=== PATIENT | female | born 1980 | race Two or more races ===

== ENCOUNTER 2018-02-24 02:35 | Emergency (ER) | payer MEDICAID ==
[~2018-02-24] VITALS: Ht 170.2 cm; Wt 49.0 kg
[2018-02-24 02:43] VITALS: BP 109/72
== END 2018-02-24 07:14 | disposition left against medical advice (07) ==
LOC: ER 02:37
DX: M79.602 Pain in left arm (principal); S70.212A Abrasion, left hip, initial encounter; Z53.21 Procedure and treatment not carried out due to patient leaving prior to being seen by health care provider; V86.55XA Driver of 3- or 4- wheeled all-terrain vehicle (ATV) injured in nontraffic accident, initial encounter; Y93.89 Activity, other specified; Y99.8 Other external cause status; Y92.89 Other specified places as the place of occurrence of the external cause
CPT/HCPCS: 73060

== ENCOUNTER 2025-06-27 00:52 | Inpatient (IN) | payer MEDICARE, MEDICAID ==
[~2025-06-27] VITALS: Ht 170.2 cm; Wt 42.6 kg
--- NOTE | 2025-06-27 02:25 | ED.PDOC ---
History of Present Illness HPI Comments 44-year-old female who came to ER for tube replacement. Patient has a history of cervical cancer stage IV, status post bilateral nephrostomy tube insertion over a year ago at a hospital at [place]. For the past few months, the stitches came of the nephrostomy tubes, and both tubes have been left dangling, held only by bandages. Nephrostomy tubes are still able to drain fluid. 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 Hx Family History Family History: Reviewed,noncontributory to illness Social History Smoker: Non-Smoker Alcohol: Denies ETOH Use Drugs: Denies Drug Use Lives In: Home Constitutional: denies: chills, diaphoresis, fatigue, fever, malaise, sweats, weakness, others EENTM: denies: blurred vision, double vision, ear bleeding, ear discharge, ear drainage, ear pain, ear ringing, eye pain, eye redness, hearing loss, mouth pain, mouth swelling, nasal discharge, nose bleeding, nose congestion, nose pain, photophobia, tearing, throat pain, throat swelling, voice changes, others Respiratory: denies: cough, hemoptysis, orthopnea, SOB at rest, shortness of breath, SOB with excertion, stridor, wheezing, others Cardiovascular: denies: chest pain, dizzy spells, diaphoresis, Dyspnea on exertion, edema, irregular heart beat, left arm pain, lightheadedness, palpitations, PND, syncope, others Gastrointestinal: denies: abdomen distended, abdominal pain, blood streaked bowels, constipated, diarrhea, dysphagia, difficulty swallowing, hematemesis, melena, nausea, poor appetite, poor fluid intake, rectal bleeding, rectal pain, vomiting, others Genitourinary: reports: others (Dislodged bilateral nephrostomy tubes); denies: abnormal vagina bleeding, burning, dyspareunia, dysuria, flank pain, frequency, hematuria, incontinence, pain, , vagina discharge, urgency Neurological: denies: dizziness, fainting, headache, left sided numbness, left sided weakness, numbness, paresthesia, pre-existing deficit, right sided numbness, right sided weakness, seizure, speech problems, tingling, tremors, weakness, others Musculoskeletal: denies: back pain, gout, joint pain, joint swelling, muscle pain, muscle stiffness, neck pain, others Integumetry: denies: bruises, change in color, change in hair/nails, dryness, laceration, lesions, lumps, rash, wounds, others Allergic/Immunocompromised: denies: Difficulty Healing, Frequent Infections, Hives, Itching, others Hematologic/Lymphatic: denies: anemia, blood clots, easy bleeding, easy bruising, swollen glands, others Endocrine: denies: excessive hunger, excessive sweating, excessive thirst, excessive urination, flushing, intolerance to cold, intolerance to heat, unexplained weight gain, unexplained weight loss, others Psychiatric: denies: anxiety, bipolar disorder, depression, hopeless, panic disorder, schizophrenia, sleepless, suicidal, others Physical Exam General Appearance: No Apparent Distress, Normal HEENT: Normal ENT Inspection, Pharynx Normal, TMs Normal Neck: Full Range of Motion, Non-Tender, Normal, Normal Inspection Respiratory: Chest Non-Tender, Lungs Clear, No Accessory Muscle Use, No Respiratory Distress, Normal Breath Sounds Cardiovascular: No Edema, No JVD, No Murmur, No Gallop, Normal Peripheral Pulses, Regular Rate/Rhythm Breast Exam: Deferred Gastrointestinal: No Organomegaly, Non Tender, No Pulsatile Mass, Normal Bowel Sounds, Soft, Other (Bilateral nephrostomy tubes) Genitalia: Deferred Pelvic: Deferred Rectal: Deferred Extremities: No calf tenderness, Normal capillary refill, Normal inspection, Normal range of motion, Non-tender, No pedal edema Musculoskeletal : Apperance: Normal Neurologic: Alert, embedded firmware developer II-XII nml as Tested, No Motor Deficits, Normal Affect, Normal Mood, No Sensory Deficits Cerebellar Function: Normal Reflexes: Normal Skin: Dry, Normal Color, Warm Lymphatic: No Adenopathy Was a procedure done? Was a procedure done?: No Differential Dx Considerations may include: Dislodged nephrostomy tube, urinary tract infection, sepsis X-Ray, Labs, Meds, VS Vital Signs Date Time Temp Pulse Resp B/P (MAP) Pulse Ox O2 Delivery O2 Flow Rate FiO2 06/27/25 00:59 99.2 100 18 106/70 100 99.2 Lab Test 06/27/25 02:28 Range/Units White Blood Count 9.1 4.4-10.8 10^3/uL Red Blood Count 2.83 L 4.0-5.20 10^6/uL Hemoglobin 9.0 L 12.2-16.2 g/dL Hematocrit 27.8 L 36.0-46.0 % Mean Corpuscular Volume 98.3 80.0-100.0 fL Mean Corpuscular Hemoglobin 32.0 28.0-32.0 pg Mean Corpuscular Hemoglobin Concent 32.5 32.0-36.0 g/dL Red Cell Distribution Width 15.1 H 11.8-14.3 % Platelet Count 413 140-450 10^3/uL Mean Platelet Volume 7.0 6.9-10.8 fL Neutrophils (%) (Auto) 83.4 H 37.0-80.0 % Lymphocytes (%) (Auto) 6.5 L 10.0-50.0 % Monocytes (%) (Auto) 7.5 0.0-12.0 % Eosinophils (%) (Auto) 2.2 0.0-7.0 % Basophils (%) (Auto) 0.4 0.0-2.0 % Neutrophils # (Auto) 7.6 1.6-8.6 10 ^3/uL Lymphocytes # (Auto) 0.6 0.4-5.4 10 ^3/uL Monocytes # (Auto) 0.7 0-1.3 10 ^3/uL Eosinophils # (Auto) 0.2 0-0.8 10 ^3/uL Basophils # (Auto) 0 0-0.2 10 ^3/uL Nucleated Red Blood Cells 0.0 % Sodium Level 134 L 136-145 mmol/L Potassium Level 3.5 3.5-5.1 mmol/L Chloride Level 102 98-107 mmol/L Carbon Dioxide Level 23 20-31 mmol/L Anion Gap 9 5-15 Blood Urea Nitrogen 11 9-23 mg/dL Creatinine 1.42 H 0.550-1.02 mg/dL Glomerular Filtration Rate Calc 47 >90 mL/min BUN/Creatinine Ratio 7.7 L 10.0-20.0 Serum Glucose 141 H 74-106 mg/dL Lactic Acid Level 1.6 0.4-2.0 mmol/L Calcium Level 8.9 8.7-10.4 mg/dL Total Bilirubin 0.3 0.2-1.0 mg/dL Aspartate Amino Transferase (AST) 29 13-40 U/L Alanine Aminotransferase (ALT) 17 7-40 U/L Alkaline Phosphatase 137 H 46-116 U/L Total Protein 7.5 5.7-8.2 g/dL Albumin 4.1 3.2-4.8 g/dL Current Medications Medications (Trade) Dose Ordered Sig/Santiago Route Start Time Stop Time Status Last Admin Sodium Chloride 1,000 ml @ 1,000 mls/hr Q1H ONCE IVB 06/27/25 02:15 06/27/25 03:14 DC 06/27/25 03:07 Exam: CT CT AB PEL WITH IV CON ONLY History: abd pain stage 4 cerv cancer Comparison Study: 02/17/2025 (report only available) Technique: Multidetector spiral CT of the abdomen was performed from lung bases to pubic symphysis. Imaging was performed without IV contrast. Axial, coronal and sagittal multiplanar reformats were obtained from the axial data set by the technologist. Radiation Dose : 1. Abdomen/Pelvis: CTDIvol 5.07 mGy, DLP 5.07 mGy*cm. Findings: Evaluation of solid organs is limited due to lack of intravenous contrast use. Lower Chest: No acute findings. Liver: Upper normal size. No focal lesion. Gallbladder and Biliary Tree: Unremarkable Pancreas: Unremarkable. Spleen: Unremarkable. Adrenal Glands: Unremarkable. Kidneys/Ureters: Bilateral percutaneous nephrostomy tubes appear appropriately positioned. Mild left hydroureteronephrosis with urothelial enhancement. Right perinephric stranding. Symmetric nephrograms. No urinary stone. Bladder: Decompressed, not well assessed. Pelvic Organs: Elongated hyperdense appearance of the cervix. No appreciable mass. Bilateral tubal occlusion clips. Bowel: Mild wall thickening of the cecum, ascending colon, and rectum. No other areas of evident inflammation. No obstruction. Small to moderate stool burden. Vasculature: Unremarkable. Lymphadenopathy: No obvious adenopathy. Peritoneum: No ascites, free air, or fluid collection. Soft tissue stranding surrounding the rectum. Abdominal Wall: Cachexia. Musculoskeletal: No acute findings. IMPRESSION: 1. Bilateral percutaneous nephrostomy tubes appear appropriately positioned. Suspected left upper urinary tract infection. 2. Unusual elongated hypodense appearance of the cervix as reported on the comparison exam. No discrete masses appreciated by CT, or specific findings of metastatic disease. 3. Wall thickening of the cecum, ascending colon, and rectum. Stranding around the rectum may be inflammatory. Correlate for symptoms of colitis/proctitis. Radiation optimization: All CT scans at this facility use at least one of these dose optimization techniques: automated exposure control mA and/or kV adjustment per patient size (includes targeted exams where dose is matched to clinical indication) or iterative reconstruction. Time of 1ST Reevaluation: 02:20 Reevaluation 1ST: Unchanged Patient Education/Counseling: Diagnosis, Treatment Family Education/Counseling: Diagnosis, Treatment SEPSIS Sepsis Screen Date sepsis recognized/suspect: Jun 27, 2025 Time Sepsis recognized/suspect: 0059 Recent Procedure: No On Antibiotic Therapy: No Respiratory Rate >20: No Heart Rate >90: No Temp<36 C (96.8 F) or >38.3 C: No SBP <90 or MAP <65 mmHG: No New Acute Mental Status Change: No Is the patient on CPAP, BIPAP,: No Physician Orders Urinalysis (06/27/25 02:02) Ct Ab Pel With Iv Con Only (06/27/25 02:02) Blood Culture (06/27/25 02:02) Ceftriaxone Ivpb Rocephin (06/27/25 04:45) Vital Signs Date Time Temp Pulse Resp B/P (MAP) Pulse Ox O2 Delivery O2 Flow Rate FiO2 06/27/25 00:59 99.2 100 18 106/70 100 99.2 Laboratory Tests Test 06/27/25 02:28 Lactic Acid Level 1.6 mmol/L (0.4-2.0) White Blood Count 9.1 10^3/uL (4.4-10.8) Medications Medications Dose Ordered Sig/Santiago Route Start Time Stop Time Status Last Admin Dose Admin Sodium Chloride 1,000 ml @ 1,000 mls/hr Q1H ONCE IVB 06/27/25 02:15 06/27/25 03:14 DC 06/27/25 03:07 Departure 1 Departure Time of Disposition: 04:37 Impression: Primary Impression: Acute renal injury Additional Impressions: Pyelonephritis 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 Electronically submitted by Jesús Valle [email or web address]). I personally scribed for GREG CASTILLO MD ([email or web address]) on 06/27/25 at 04:24. Electronically submitted by Jesús Valle ([email or web address]). GREG CASTILLO MD Jun 27, 2025 02:25
[2025-06-27 02:47] LABS: Hematocrit 27.8 % (36.0-46.0); Hemoglobin 9.0 g/dL (12.2-16.2); Mean Corpuscular Hemoglobin 32.0 pg (28.0-32.0); Mean Corpuscular Volume 98.3 fL (80.0-100.0); Nucleated Red Blood Cells % 0.0 %
[2025-06-27 02:58] LABS: Alanine Aminotransferase 17 U/L (7-40); Albumin 4.1 g/dL (3.2-4.8); Anion Gap 9 (5-15); BUN/Creatinine Ratio 7.7 (10.0-20.0); Blood Urea Nitrogen 11 mg/dL (9-23); Calcium 8.9 mg/dL (8.7-10.4); Carbon Dioxide 23 mmol/L (20-31); Chloride 102 mmol/L (98-107); Potassium 3.5 mmol/L (3.5-5.1); Total Protein 7.5 g/dL (5.7-8.2)
[2025-06-27 03:00] LABS: Alkaline Phosphatase 137 U/L (46-116); Bilirubin, Total 0.3 mg/dL (0.2-1.0); Glucose 141 mg/dL (74-106); Sodium 134 mmol/L (136-145)
[2025-06-27] MEDS: SODIUM CHLORIDE 0.9% 1,000 ML IVB ONE (03:07)
[2025-06-27] MEDS: IOHEXOL 300 MG/ML 100ML BOTTLE IJ ONE (03:56)
--- NOTE | 2025-06-27 04:19 | DVH ---
Exam: CT CT AB PEL WITH IV CON ONLY History: abd pain stage 4 cerv cancer Comparison Study: 02/17/2025 (report only available) Technique: Multidetector spiral CT of the abdomen was performed from lung bases to pubic symphysis. I maging was performed without IV contrast. Axial, coronal and sagittal multiplanar reformats were obta ined from the axial data set by the technologist. Radiation Dose : 1. Abdomen/Pelvis: CTDIvol 5.07 mGy, DLP 5.07 mGy*cm. Findings: Evaluation of solid organs is limited due to lack of intravenous contrast use. Lower Chest: No acute findings. Liver: Upper normal size. No focal lesion. Gallbladder and Biliary Tree: Unremarkable Pancreas: Unremarkable. Spleen: Unremarkable. Adrenal Glands: Unremarkable. Kidneys/Ureters: Bilateral percutaneous nephrostomy tubes appear appropriately positioned. Mild left hydroureteronephrosis with urothelial enhancement. Right perinephric stranding. Symmetric nephrogram s. No urinary stone. Bladder: Decompressed, not well assessed. Pelvic Organs: Elongated hyperdense appearance of the cervix. No appreciable mass. Bilateral tubal occlusion clips. Bowel: Mild wall thickening of the cecum, ascending colon, and rectum. No other areas of evident infl ammation. No obstruction. Small to moderate stool burden. Vasculature: Unremarkable. Lymphadenopathy: No obvious adenopathy. Peritoneum: No ascites, free air, or fluid collection. Soft tissue stranding surrounding the rectum. Abdominal Wall: Cachexia. Musculoskeletal: No acute findings. IMPRESSION: 1. Bilateral percutaneous nephrostomy tubes appear appropriately positioned. Suspected left upper uri nary tract infection. 2. Unusual elongated hypodense appearance of the cervix as reported on the comparison exam. No discre te masses appreciated by CT, or specific findings of metastatic disease. 3. Wall thickening of the cecum, ascending colon, and rectum. Stranding around the rectum may be inf lammatory. Correlate for symptoms of colitis/proctitis. Radiation optimization: All CT scans at this facility use at least one of these dose optimization stephanie hniques: automated exposure control mA and/or kV adjustment per patient size (includes targeted exam s where dose is matched to clinical indication) or iterative reconstruction.
[2025-06-27] MEDS ORDERED: DOCUSATE SOD 100 MG CAP PO PRN (05:00)
[2025-06-27] MEDS ORDERED: ACETAMINOPHEN 325 MG TAB PO PRN (05:00)
[2025-06-27] MEDS ORDERED: MORPHINE SULFATE INJ 2 MG/ml SYRG IV PRN ×2 (05:00→05:30)
[2025-06-27] MEDS ORDERED: NITROGLYCERIN 0.4 MG SL TAB SL PRN (05:00)
--- NOTE | 2025-06-27 05:32 | DVHHPRES ---
History of Present Illness Resident Creating Document: BEBO ABRAMS RESIDENT History of Present Illness Jeff Mcmullen is a 44-year-old female who came to ER for severe pain in bilateral flank which is 10/10 in intensity, more on the left side , and for tube replacement. Patient has a history of cervical cancer stage IV, status post bilateral nephrostomy tube insertion over a year ago at a hospital at [place]. For the past few months, the stitches came of the nephrostomy tubes, and both tubes have been left dangling, held only by bandages. Nephrostomy tubes are still able to drain fluid, and nephrostomy bags are filled with non bloody urine. patient also complains of bloody stool since 1 month. She also states feeling weak, dizzy, headaches, fevers and chills. Past surgical history: Surgery for cervical cancer, nephrostomy tube placement Family history: Reviewed noncontributory Personal history: Patient denies smoking, drinking, drugs use Lives with: Family Review of Systems Constitutional: Yes: Fever, Chills, Weakness; No: Sweats, Malaise, Other Eyes: No: Pain, Vision change, Conjunctivae inflammation, Eyelid inflammation, Other, Redness ENT: No: Ear pain, Ear discharge, Nose pain, Nose discharge, Nose congestion, Mouth pain, Mouth swelling, Throat pain, Throat swelling, Other Respiratory: No: Cough, Dry, Shortness of breath, SOB with excertion, Wheezing, Hemoptysis, Pleuritic Pain, Sputum, Wheezing, Other Cardiovascular: No: Chest Pain, Palpitations, Orthopnea, Paroxysmal Noc. Dyspnea, Edema, Lt Headedness, Other Gastrointestinal: Nausea, Hematochezia, Other; No: Vomiting, Abdominal Pain, Diarrhea, Constipation, Melena Genitourinary: Other (Bilateral flank pain) Musculoskeletal: No: other, neck pain, shoulder pain, arm pain, back pain, hand pain, leg pain, foot pain Skin: No: Rash, Lesions, Jaundice, Bruising, Other Neurological: No: Weakness, Numbness, Incoordination, Change in speech, Confusion, Seizures, Other Allergies: Coded Allergies: Morphine (Verified Allergy, Unknown, 06/27/25) Penicillins (Verified Allergy, Unknown, 02/24/18) Medications Current Medications Medications Dose Ordered Sig/Santiago Route Start Time Stop Time Status Last Admin Dose Admin Acetaminophen 325 mg Q4HP PRN PO 06/27/25 05:00 Acetaminophen/ Hydrocodone Bitart 1 tab Q4HP PRN PO 06/27/25 05:00 Ondansetron HCl 4 mg Q4HP PRN IV 06/27/25 05:00 Docusate Sodium 100 mg BIDPRN PRN PO 06/27/25 05:00 Nitroglycerin 0.4 mg Q5MINP PRN SL 06/27/25 05:00 Morphine Sulfate 2 mg Q30M PRN IV 06/27/25 05:00 Exam Vital Signs Vital Signs Date Time Temp Pulse Resp B/P (MAP) Pulse Ox O2 Delivery O2 Flow Rate FiO2 06/27/25 00:59 99.2 100 18 106/70 100 99.2 Exam General: Patient alert and oriented in person, place and time. Patient following commands. Malnourished, weak, in severe distress HEENT: Normocephalic, atraumatic, moist mucous membranes Respiratory/pulmonary: Clear lungs bilaterally, vesicular murmurs present in almost all lung harper, no associated crackles or wheezes. Cardiovascular: Normal heart sounds S1 and S2 with no associated murmurs Abdomen: Bilateral nephrostomy tube placement with clear urine in bags, Extremities: There is no peripheral edema present at the lower extremities. Peripheral Pulses: 3+ Radial (R). 3+ Radial (L). 3+ Dorsalis pedis (R). 3+ Dorsalis pedis(L) Skin: No rashes or pruritus, there is no sacral edema present at this time. Neurological: Intact cranial nerves with no focal neurologic deficits Psych/mental status: Normal mood, mental status Labs/Xrays Labs Test 06/27/25 02:28 Range/Units White Blood Count 9.1 4.4-10.8 10^3/uL Red Blood Count 2.83 L 4.0-5.20 10^6/uL Hemoglobin 9.0 L 12.2-16.2 g/dL Hematocrit 27.8 L 36.0-46.0 % Mean Corpuscular Volume 98.3 80.0-100.0 fL Mean Corpuscular Hemoglobin 32.0 28.0-32.0 pg Mean Corpuscular Hemoglobin Concent 32.5 32.0-36.0 g/dL Red Cell Distribution Width 15.1 H 11.8-14.3 % Platelet Count 413 140-450 10^3/uL Mean Platelet Volume 7.0 6.9-10.8 fL Neutrophils (%) (Auto) 83.4 H 37.0-80.0 % Lymphocytes (%) (Auto) 6.5 L 10.0-50.0 % Monocytes (%) (Auto) 7.5 0.0-12.0 % Eosinophils (%) (Auto) 2.2 0.0-7.0 % Basophils (%) (Auto) 0.4 0.0-2.0 % Neutrophils # (Auto) 7.6 1.6-8.6 10 ^3/uL Lymphocytes # (Auto) 0.6 0.4-5.4 10 ^3/uL Monocytes # (Auto) 0.7 0-1.3 10 ^3/uL Eosinophils # (Auto) 0.2 0-0.8 10 ^3/uL Basophils # (Auto) 0 0-0.2 10 ^3/uL Nucleated Red Blood Cells 0.0 % Sodium Level 134 L 136-145 mmol/L Potassium Level 3.5 3.5-5.1 mmol/L Chloride Level 102 98-107 mmol/L Carbon Dioxide Level 23 20-31 mmol/L Anion Gap 9 5-15 Blood Urea Nitrogen 11 9-23 mg/dL Creatinine 1.42 H 0.550-1.02 mg/dL Glomerular Filtration Rate Calc 47 >90 mL/min BUN/Creatinine Ratio 7.7 L 10.0-20.0 Serum Glucose 141 H 74-106 mg/dL Lactic Acid Level 1.6 0.4-2.0 mmol/L Calcium Level 8.9 8.7-10.4 mg/dL Total Bilirubin 0.3 0.2-1.0 mg/dL Aspartate Amino Transferase (AST) 29 13-40 U/L Alanine Aminotransferase (ALT) 17 7-40 U/L Alkaline Phosphatase 137 H 46-116 U/L Total Protein 7.5 5.7-8.2 g/dL Albumin 4.1 3.2-4.8 g/dL SEPSIS Sepsis Screen Date sepsis recognized/suspect: Jun 27, 2025 Time Sepsis recognized/suspect: 58 Recent Procedure: No On Antibiotic Therapy: No Respiratory Rate >20: No Heart Rate >90: No Temp<36 C (96.8 F) or >38.3 C: No SBP <90 or MAP <65 mmHG: No New Acute Mental Status Change: No Is the patient on CPAP, BIPAP,: No Physician Orders Urinalysis (06/27/25 02:02) Ct Ab Pel With Iv Con Only (06/27/25 02:02) Blood Culture (06/27/25 02:02) Ceftriaxone 1gm/50ml D5w (Rocephin) (06/27/25 04:45) Admit (06/27/25 04:47) Allergies (06/27/25 04:47) Code Status (06/27/25 04:47) Acetaminophen Tablet (Tylenol Tablet) (06/27/25 05:00) Hydrocodone-Acet 5/325mg Tab ([place] 5/32 (06/27/25 05:00) Ondansetron Hcl (Zofran) (06/27/25 05:00) Docusate Sodium Capsule (Colace Capsule) (06/27/25 05:00) Npo (Nothing By Mouth) Diet (06/27/25 Breakfast) Condition: Serious (06/27/25 04:47) Bedrest With Bathroom Privileg (06/27/25 04:47) Nitroglycerin Sublingual (Ntrostat Subli (06/27/25 05:00) Morphine Sulfate Injection (06/27/25 05:00) Oxygen By Nasal Cannula (06/27/25 04:47) Stat Ekg For Chest Pain (06/27/25 04:47) Notify Md Of Changes From Base (06/27/25 04:47) Radiation Monitor For 24 Hours (06/27/25 04:47) Emergency Dysrhythmia Protocol (06/27/25 04:47) Rhythm Strips Once Every Shift (06/27/25 04:47) Vital Signs Date Time Temp Pulse Resp B/P (MAP) Pulse Ox O2 Delivery O2 Flow Rate FiO2 06/27/25 00:59 99.2 100 18 106/70 100 99.2 Laboratory Tests Test 06/27/25 02:28 Lactic Acid Level 1.6 mmol/L (0.4-2.0) White Blood Count 9.1 10^3/uL (4.4-10.8) Medications Medications Dose Ordered Sig/Santiago Route Start Time Stop Time Status Last Admin Dose Admin Sodium Chloride 1,000 ml @ 1,000 mls/hr Q1H ONCE IVB 06/27/25 02:15 06/27/25 03:14 DC 06/27/25 03:07 1,000 MLS/HR Assessment/Plan Assessment/Plan # complication of Nephrostomy tube # stage IV cervical cancer with possible metastasis # possible acute complicated pyelonephritis # suspected left upper UTI - abdominal CT showed: Bilateral percutaneous nephrostomy tubes appear appropriately positioned. Suspected left upper urinary tract infection. Unusual elongated hypodense appearance of the cervix as reported on the comparison exam - Blood, and Urine culture ordered - IV meropenem 1 g - urology consult placed -morphine 2 mg IV # Questionable colitis/proctitis. - CT abdomen showed: Wall thickening of the cecum, ascending colon, and rectum. Stranding around the rectum may be inflammatory. 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 Peguero, patient and nurse Plan discussed with: Patient My Orders Orders - BEBO ABRAMS RESIDENT Procedure Category Date Status Time Admit ADMIT 06/27/25 Transmitted 04:47 Allergies MISTY 06/27/25 In Process 04:47 Code Status CODE 06/27/25 Transmitted 04:47 Acetaminophen Tablet PHA 06/27/25 In Process (Tylenol Tablet) 05:00 Hydrocodone-Acet PHA 06/27/25 In Process 5/325mg Tab ([place] 05:00 Ondansetron Hcl PHA 06/27/25 In Process (Zofran) 05:00 Docusate Sodium PHA 06/27/25 In Process Capsule (Colace 05:00 Npo (Nothing By DIET 06/27/25 Transmitted Mouth) Diet Breakfast Condition: Serious MISTY 06/27/25 In Process 04:47 Bedrest With Bathroom MISTY 06/27/25 In Process Privileg 04:47 Nitroglycerin PHA 06/27/25 In Process Sublingual (Ntrostat 05:00 Morphine Sulfate PHA 06/27/25 In Process Injection 05:00 Oxygen By Nasal RT 06/27/25 Transmitted Cannula 04:47 Stat Ekg For Chest [facility] 06/27/25 In Process Pain 04:47 Notify Md Of Changes [facility] 06/27/25 In Process From Base 04:47 Radiation Monitor For [facility] 06/27/25 In Process 24 Hours 04:47 Emergency Dysrhythmia [facility] 06/27/25 In Process Protocol 04:47 Rhythm Strips Once [facility] 06/27/25 In Process Every Shift 04:47 Date of Service: Jun 27, 2025 Billing Provider: ABIDA PEGUERO MD Common Visit Codes: 88796-EFGHKYP INP/OBS CARE (HIGH) Secondary Visit Codes: [id number] CARE PLAN 30 MINUTES BEBO ABRAMS RESIDENT Jun 27, 2025 05:32
[2025-06-27] MEDS: HYDROcodone-ACET 5/325MG TAB PO PRN (06:13)
[2025-06-27] MEDS: MEROPENEM 1GM IVPB 50 ML IV ONE (07:15)
[2025-06-27 08:20] LABS: INR 1.04 (0.9-1.15); Partial Thromboplastin Time 34.4 SEC (24.5-34.5); Prothrombin Time 11.0 sec (9.3-11.8)
[2025-06-27] MEDS: LACTATED RINGER'S 1,000 ML IV SCH ×2 (09:16→15:24)
[2025-06-27] MEDS: PANTOPRAZOLE 40 MG/10 ML VIAL INJ IV ONE (09:16)
[2025-06-27 10:05] VITALS: PULSE 79; RESP 18; O2SAT 100
[2025-06-27 10:57] LABS: Magnesium 1.9 mg/dL (1.6-2.6)
[2025-06-27] MEDS: SODIUM CHLORIDE 0.9% 500 ML IV ONE (11:05)
[2025-06-27 12:15] LABS: Amphetamine Screen, Urine Pos (NEGATIVE); Barbiturate Scree,Urine Neg (NEGATIVE); Benzodiazephine Screen, Urine Neg (NEGATIVE); Cocaine Screen, Urine Neg (NEGATIVE); Opiate Scree,Urine Neg (NEGATIVE); Phencyclidine Screen, Urine Neg (NEGATIVE)
[2025-06-27 12:16] LABS: Cannabinoid Screen, Urine Neg (NEGATIVE)
[2025-06-27 12:17] LABS: Urine Protein, UAD TRACE (Negative)
[2025-06-27] MEDS: MEROPENEM 1GM IVPB 50 ML IV SCH (15:23)
[2025-06-27] MEDS ORDERED: VANCOMYCIN PER PHARMACY 0 MG IV SCH (16:45)
[2025-06-27] MEDS ORDERED: VANCOMYCIN 500mg/100mL 100 ML IV ONE (16:45)
--- NOTE | 2025-06-27 16:47 | DVHPNRES ---
Progress Note Date Seen: Jun 27, 2025 Resident Creating Document: UVALDO GORDILLO RESIDENT Medical Necessity Reason Pt with a Central, PICC or Fol: Yes Subjective Review of Systems Patient is 44 years old female with a past medical history of cervical carcinoma stage IV, status post bilateral nephrostomy done 1 year before likely due to bilateral hydronephrosis came with a complaint of bilateral flank pain going for for few days, 10/10. Associated with nausea and low-grade fever at home 99 F. patient denied any diarrhea, constipation, acute joint redness or swelling or sick contact. Initial lab workup revealed hemoglobin 9.0, hematocrit 27.8. serum creatinine 1.39. Urinalysis revealed leukocyte esterase 3+, RBC 68, WBC 84. CT abdomen and pelvis revealed1. Bilateral percutaneous nephrostomy tubes appear appropriately positioned. Unusual elongated hypodense appearance of the cervix as reported on the comparison exam. Suspected left upper urinary tract infection. Wall thickening of the cecum, ascending colon, and rectum. Stranding around the rectum may be inflammatory. Correlate for symptoms of colitis/proctitis. PMH-status post cervical carcinoma, bilateral hydronephrosis, status post bilateral nephrostomy tube placement PSH- bilateral nephrostomy tube placement 1 year before at [facility], surgery for cervical carcinoma, Allergy- morphine, penicillin Personal History/ Social History- denies smoking/alcoholism/drug abuse Cardiovascular- deny acute chest pain or shortness of breath or cough or palpitation Respiratory denies cough or short of breath or wheezing Gastrointestinal- denies any rectal bleeding, nausea or vomiting Musculoskeletal-denies acute joint swelling or tenderness or redness Neurological- denies acute dysarthria, dysphagia, change in vision Psychiatry- denies depression or SI or HI Skin- denies acute rash or purpura Patient was seen today at bedside, labs and chart reviewed. Patient reported ongoing bilateral flank pain, patient reported poor appetite. Pending Urology consult, on antibiotic meropenem. Patient with a hypotension even after IV fluid bolus. Patient was started on Levophed due to hypotension. Pending blood culture and uterine culture, ordered midodrine 10 mg p.o. t.i.d., hydrocortisone 100 mg IV t.i.d, ordered PICC line. Objective vital signs Vital Sign Date Time Temp Pulse Resp B/P (MAP) Pulse Ox O2 Delivery O2 Flow Rate FiO2 06/27/25 14:00 97.8 67 18 101/64 (72) 100 97.8 06/27/25 10:05 Room Air* 0 21 medications Current Medications Medications Dose Ordered Sig/Santiago Route Start Time Stop Time Status Last Admin Dose Admin Acetaminophen 325 mg Q4HP PRN PO 06/27/25 05:00 Acetaminophen/ Hydrocodone Bitart 1 tab Q4HP PRN PO 06/27/25 05:00 06/27/25 10:54 1 TAB Ondansetron HCl 4 mg Q4HP PRN IV 06/27/25 05:00 Docusate Sodium 100 mg BIDPRN PRN PO 06/27/25 05:00 Morphine Sulfate 2 mg Q6HPRN PRN IV 06/27/25 05:30 Hold Pantoprazole Sodium 40 mg BID IV 06/27/25 22:00 Meropenem 50 ml @ 17 mls/hr Q8HR IV 06/27/25 14:00 06/27/25 15:23 17 MLS/HR Lactated Ringer's 1,000 ml @ 40 mls/hr Q24H IV 06/27/25 12:15 06/27/25 15:24 40 MLS/HR Norepinephrine Bitartrate 250 ml @ 3.75 mls/hr Q24H IV 06/27/25 16:30 Examination General examination- awake, alert, oriented, cachexia, malnourished HEENT- PEERLA, no acute nasal discharge Cardiovascular- S1-S2 audible, rate and rhythm regular, no murmur Respiratory- CTAB, no wheeze or rhonchi Gastrointestinal-nontender, bowel sound+. Nondistended Musculoskeletal-no acute joint swelling or tenderness or redness Renal system-bilateral renal angle tenderness++, bilateral nephrostomy tube in place Lower extremity- bilateral muscle wasting Neurological- cranial nerves intact, no acute dysarthria or dysphagia Psychiatry- denies depression or SI or HI Skin- no acute rash or purpura laboratory and microbiology Laboratory Tests 06/27/25 02:28 Test 06/27/25 02:28 Range/Units Serum Glucose 141 H 74-106 mg/dL Problem List/Assessment/Plan Problem List/Assessment/Plan Assessment and plan # septic shock likely due to pyelonephritis # suspected acute pyelonephritis #Mild left hydroureteronephrosis # acute complicated UTI # bilateral nephrostomy tube in place -continue IV fluid as prescribed -continue IV antibiotic meropenem -Urology consult-spoke to Dr. Veras recommended to continue conservative management if nephrostomy tube draining uterine, wait until Monday until IR comes back. -monitor CBC, CMP -pending blood culture, urine culture # failure to thrive -ordered dietary consult # history of cervical carcinoma stage IV -follow up with outpatient oncologist # anemia likely due to anemia chronic disease --ordered iron profile, ferritin -monitor CBC # suspected colitis/proctitis -continue IV antibiotic and IV fluid as prescribed # MIKO likely due to VMN -avoid dehydration and nephrotoxic drugs -continue IV fluid as prescribed -monitor CMP Goals of care, Code status ; discussed with >15 minutes PUD prophylaxis: Pantoprazole DVT prophylaxis: Lovenox Plan discussed with Dr. Gutierrez , nursing staff, Total time spent on patient evaluation, chart review, assessment and plan, discussion discussion >35 minutes Plan discussed with: Patient, Other My Orders My Orders Orders - UVALDO GORDILLO RESIDENT Procedure Category Date Status Time Urine Bacterial BERNICE 06/27/25 Logged Culture 09:17 Regular Diet DIET 06/27/25 Transmitted Lunch Lactated Ringer's PHA 06/27/25 In Process 12:15 Norepinephrine 8 PHA 06/27/25 In Process Mg/250ml Kit 16:30 Date of Service: Jun 27, 2025 Billing Provider: NONA SHEARER MD Common Visit Codes: 14098-[id number] CARE 30-74 MIN UVALDO GORDILLO Jun 27, 2025 16:47 MARIA ELENA HALE Jun 27, 2025 19:42 NONA SHEARER MD Jun 29, 2025 22:24
[2025-06-27] MEDS ORDERED: VANCOMYCIN 750MG KIT 100 ML IV ONE (17:30)
[2025-06-27] MEDS: NOREPINEPHRINE 8 MG/250ML KIT 250 ML IV SCH (17:42)
[2025-06-27] MEDS: MIDODRINE HCL 10 MG TAB PO SCH (18:00)
[2025-06-27] MEDS: HYDROcodone-ACET 10/325MG TAB PO ONE (19:15)
[2025-06-27] MEDS: HYDROmorphone HCL 2 MG/ML VL/or syr IV ONE (19:40)
--- NOTE | 2025-06-27 19:56 | DVHNC2 ---
Procedure - Central Line Procedure Note Date and time: Indication: Hypotension Pressors Vascular Access Central Line Location: Right Internal Jugular Vein Procedure Locomotive Operator Helper: Jonathan Jesus Resident Attending Physician: MD Alton Consent: Consent was obtained from patient prior to the procedure. Indications, risks and benefits were discussed prior to the procedure. Procedure Summary: A time out was performed. My hands were washed immediately prior to the procedure. I wore a surgical cap, mask with protective eyewear, full gown and sterile gloves throughout the procedure. The patient was placed in Trendelenburg position, with head turned 30 degrees away from the insertion site. The Right neck was prepped using chlorhexidine scrub and draped in sterile fashion using a three quarter sheet drape and sterile towels. Skin preparation was allowed to dry prior to skin puncture. Anatomic landmarks were identified. Anesthesia was achieved over the vein using 5 ml of 1% lidocaine. Using real-time ultrasound, with sterile probe cover and sterile gel, the Right Internal Jugular Vein was identified on ultrasound using the linear ultrasound probe in the transverse orientation. The carotid or subclavian or femoral artery was identified and avoided utilizing color-flow. The Internal Jugular Vein was then placed in the center of the ultrasound field and compressed for patency. The introducer needle was inserted into the vein under direct ultrasound visualization, and a movement artifact was identified as the needle was advanced through the skin toward the vessel. A real-time hyperechoic signal revealed visualization of vascular needle entry into the lumen as blood was noted to flashback in the syringe. The needle was then held in place, the syringe was removed, and the guide wire was advanced through the needle. Direct visualization of the guide wire location within the vein was noted on ultrasound, indicating proper placement. The needle was then removed. A small incision was made at the skin surface with a scalpel, and a skin dilator was advanced over the guide wire. After appropriate dilation was obtained, the dilat or was removed, and a triple-lumen catheter was then advanced over the guide wire into proper position. The guide wire was removed and discarded. The ports were aspirated, which showed good blood return, and then carefully flushed with normal saline. The catheter was stabilized and sutured to the skin with 2-0 silk at two anchor points. A sterile op-site was placed over the catheter and biopatch. The patient tolerated the procedure without any hemodynamic compromise. Estimated blood loss: 5 ml Post-procedure chest x-ray: Shows proper positioning of the catheter for use. JONATHAN JESUS RESIDENT Jun 27, 2025 19:56
--- NOTE | 2025-06-27 20:11 | DVH ---
CHEST RADIOGRAPH REASON FOR EXAM: Central line assess post placement COMPARISON: None TECHNIQUE: One view of the chest is provided FINDINGS: The cardiomediastinal silhouette is within normal limits for technique. There is a right ne ck catheter with the tip projecting over the area of the cavoatrial junction. There is no focal airsp jake disease. There is no significant pleural effusion. No acute bony abnormality is identified. IMPRESSION: No radiographic evidence of acute cardiopulmonary process. Right neck catheter tip projects over the cavoatrial junction.
[2025-06-27] MEDS: SODIUM CHLORIDE 0.9% 1,000 ML IV ONE (20:16)
[2025-06-27] MEDS: HYDROCORTISONE SOD SUCC 100 MG/2ML INJ VIAL IV SCH (20:20)
[2025-06-27] MEDS: VANCOMYCIN 750MG KIT 100 ML IV ONE (20:35)
[2025-06-27] MEDS: diphenhdrAMINE HCL 50 MG/1 ML VL IM ONE (21:57)
[2025-06-27] MEDS: PANTOPRAZOLE 40 MG/10 ML VIAL INJ IV SCH (22:24)
[2025-06-27] MEDS: diphenhdrAMINE HCL 50 MG/1 ML VL IV ONE (22:24)
[2025-06-28 04:55] LABS: Hematocrit 25.2 % (36.0-46.0)
[2025-06-28 04:56] LABS: Alanine Aminotransferase 22 U/L (7-40); Albumin 3.5 g/dL (3.2-4.8); Anion Gap 6 (5-15); BUN/Creatinine Ratio 9.3 (10.0-20.0); Blood Urea Nitrogen 11 mg/dL (9-23); Carbon Dioxide 24 mmol/L (20-31); Hemoglobin 8.4 g/dL (12.2-16.2); Magnesium 1.9 mg/dL (1.6-2.6); Mean Corpuscular Hemoglobin 32.0 pg (28.0-32.0); Mean Corpuscular Volume 96.2 fL (80.0-100.0); Potassium 4.0 mmol/L (3.5-5.1); Sodium 140 mmol/L (136-145); Total Protein 6.5 g/dL (5.7-8.2)
[2025-06-28 04:59] LABS: Iron 21.0 ug/dL (50-170); Total Iron Binding Capacity 193.0 ug/dL (250-425)
[2025-06-28 05:00] LABS: Alkaline Phosphatase 172 U/L (46-116); Bilirubin, Total 0.2 mg/dL (0.2-1.0); Calcium 8.5 mg/dL (8.7-10.4); Chloride 110 mmol/L (98-107); Glucose 137 mg/dL (74-106)
[2025-06-28 05:50] LABS: Smudge Cells 1 /100 WBC; Total Cells Counted 100.0 (100)
[2025-06-28 08:00] VITALS: PULSE 45; RESP 16; O2SAT 98
[2025-06-28] MEDS: VANCOMYCIN 500mg/100mL 100 ML IV SCH (09:00)
[2025-06-28] MEDS: diphenhdrAMINE HCL 50 MG/1 ML VL IV PRN ×2 (10:12→23:48)
[2025-06-28] MEDS: diphenhdrAMINE HCL 50 MG/1 ML VL IV ONE (15:42)
[2025-06-28] MEDS ORDERED: PROCHLORPERAZINE EDISYLATE 5 MG/ML 2ML VIAL IV PRN (16:00)
[2025-06-28] MEDS: DOPamine 1600MCG/ML D5W 250 ML IV SCH (16:39)
--- NOTE | 2025-06-28 16:49 | DVHINCON2 ---
Date Seen: Jun 28, 2025 Referring Physician Rito Reason for Consultation Bradycardia History of Present Illness 44-year-old female with PMH for stage IV cervical cancer, no longer seeking treatment/chemo, s/p bilateral nephrostomy 2, bradycardia and hypotension presents to the hospital with flank pain. Patient states she came in to see about getting her nephrostomy tubes replaced, noted to have increased bilateral flank pain. Upon evaluation in the ER patient found to have 70 low blood pressure in the 70s systolic, low heart rate. EKG reviewed and shows junctional rhythm. Patient endorses that she was referred in the past for possible pacemaker implantation though refused at that time. Troponin negative. UDS positive for amphetamines. Past Medical History As stated above Past Surgical History As stated above Family History Denies pertinent family cardiac history Allergies: Coded Allergies: Morphine (Verified Allergy, Unknown, 06/27/25) Penicillins (Verified Allergy, Unknown, 02/24/18) Current Medications Current Medications Medications (Trade) Dose Ordered Sig/Santiago Route PRN Reason Start Time Stop Time Status Last Admin Pantoprazole Sodium (Protonix) 40 mg BID IV 06/27/25 22:00 06/28/25 10:08 Vancomycin HCl 0 ml @ 0 mls/hr UD IV 06/27/25 16:45 Midodrine (Proamatine Tablet) 10 mg TID@0600,1200,1800 PO 06/27/25 17:15 06/28/25 12:18 Hydrocortisone Sodium Succinate (Solu-CORTEF INJECTION) 100 mg Q8HR IV 06/27/25 17:15 07/02/25 17:14 06/28/25 14:46 Vancomycin HCl 100 ml @ 200 mls/hr Q12H IV 06/28/25 09:00 06/28/25 09:00 Diphenhydramine HCl (Benadryl Injection) 25 mg Q8HP PRN IV FOR ITCHING 06/28/25 10:00 06/28/25 16:06 DC 06/28/25 10:12 Dopamine HCl/ Dextrose 250 ml @ 7.688 mls/ hr Q24H IV 06/28/25 16:00 Prochlorperazine Edisylate (Compazine Inj) 5 mg Q6HPRN PRN IV Headache, second line 06/28/25 16:00 Diphenhydramine HCl (Benadryl Injection) 50 mg Q4H PRN IV FOR MUSCLE SPASM 06/28/25 18:00 Review of Systems Constitutional: No: Fever, Chills, Sweats, Weakness, Malaise, Other Eyes: No: Pain, Vision change, Conjunctivae inflammation, Eyelid inflammation, Other, Redness ENT: No: Ear pain, Ear discharge, Nose pain, Nose discharge, Nose congestion, Mouth pain, Mouth swelling, Throat pain, Throat swelling, Other Respiratory: No: Cough, Dry, Shortness of breath, SOB with exertion, Wheezing, Hemoptysis, Pleuritic Pain, Sputum, Wheezing, Other Cardiovascular: ; No: Chest Pain Palpitations, Orthopnea, Paroxysmal Noc. Dyspnea, Edema, Lt Headedness, Other Gastrointestinal: No: Nausea, Vomiting, Abdominal Pain, Diarrhea, Constipation, Melena, Hematochezia, Other Genitourinary: No Dysuria, No Frequency, No Incontinence, No Hematuria, No Retention, No Other flank pain, Musculoskeletal: neck pain; No: other, shoulder pain, arm pain, back pain, hand pain, leg pain, foot pain Skin: No: Rash, Lesions, Jaundice, Bruising, Other Neurological: Other (Dizziness, headache.); No: Weakness, Numbness, Incoordination, Change in speech, Confusion, Seizures Vital Signs Vital Signs Date Time Temp Pulse Resp B/P (MAP) Pulse Ox O2 Delivery O2 Flow Rate FiO2 06/28/25 14:15 57 20 82/52 (62) 100 06/28/25 11:00 97.9 97.9 06/28/25 08:00 Room Air* 0 21 Physical Exam General appearance: Ill-appearing, in no acute distress. HEENT: Exam shows: Normocephalic, atraumatic, PERRLA, EOMI Neck: Supple, no bruits Chest: Equal chest excursion bilaterally. Breath sounds normal-no rales or wheezes. Heart: Rhythm: Bradycardia; no murmur or gallop Abdomen: Exam shows: Soft, nontender, nondistended, bilateral nephrostomy tube Musculoskeletal: No clubbing, no cyanosis, no lower extremity edema Dermatology: Skin warm, moist. Neurological: Exam shows: Alert and oriented x4, normal speech Available prior records, labs, EKG, rhythm strips reviewed and interpreted Labs/Diagnostic Data Labs Test 06/28/25 13:30 06/28/25 04:08 06/27/25 12:04 06/27/25 10:20 Range/Units Stool for White Cells None seen White Blood Count 9.1 4.4-10.8 10^3/uL Red Blood Count 2.62 L 4.0-5.20 10^6/uL Hemoglobin 8.4 L 12.2-16.2 g/dL Hematocrit 25.2 L 36.0-46.0 % Mean Corpuscular Volume 96.2 80.0-100.0 fL Mean Corpuscular Hemoglobin 32.0 28.0-32.0 pg Mean Corpuscular Hemoglobin Concent 33.3 32.0-36.0 g/dL Red Cell Distribution Width 14.4 H 11.8-14.3 % Platelet Count 414 140-450 10^3/uL Mean Platelet Volume 7.3 6.9-10.8 fL Neutrophils (%) (Auto) 37.0-80.0 % Lymphocytes (%) (Auto) 10.0-50.0 % Monocytes (%) (Auto) 0.0-12.0 % Basophils (%) (Auto) 0.0-2.0 % Neutrophils # (Auto) 1.6-8.6 10 ^3/uL Lymphocytes # (Auto) 0.4-5.4 10 ^3/uL Monocytes # (Auto) 0-1.3 10 ^3/uL Differential Total Cells Counted 100.0 100 Neutrophils % (Manual) 92 H 37.0-80.0 Band Neutrophils % (Manual) 1 Lymphocytes % (Manual) 4 L 10.0-50.0 Monocytes % (Manual) 3 0-12 Eosinophils % (Manual) 0 0-7 Basophils % (Manual) 0 0.0-2.0 Metamyelocytes % (manual) 0 Myelocytes % (Manual) 0 Promyelocytes % (Manual) 0 Blast Cells % (Manual) 0 Reactive Lymphocytes 0 Smudge Cells 1 /100 WBC Platelet Estimate Adequate Sodium Level 140 # 136-145 mmol/L Potassium Level 4.0 3.5-5.1 mmol/L Chloride Level 110 H 98-107 mmol/L Carbon Dioxide Level 24 20-31 mmol/L Anion Gap 6 5-15 Blood Urea Nitrogen 11 9-23 mg/dL Creatinine 1.18 H 0.550-1.02 mg/dL Glomerular Filtration Rate Calc 59 >90 mL/min BUN/Creatinine Ratio 9.3 L 10.0-20.0 Serum Glucose 137 H 74-106 mg/dL Calcium Level 8.5 L 8.7-10.4 mg/dL Magnesium Level 1.9 1.6-2.6 mg/dL Iron Level 21 L 50-170 ug/dL Total Iron Binding Capacity 193 L 250-425 ug/dL Percent Iron Saturation 10.9 L 15-50 % Ferritin 695.8 H 10-291 ng/mL Total Bilirubin 0.2 0.2-1.0 mg/dL Aspartate Amino Transferase (AST) 20 13-40 U/L Alanine Aminotransferase (ALT) 22 7-40 U/L Alkaline Phosphatase 172 H 46-116 U/L Total Protein 6.5 5.7-8.2 g/dL Albumin 3.5 3.2-4.8 g/dL Random Vancomycin Level 14.5 H 5-10 ug/mL Erythrocyte Sedimentation Rate 75 H 0-20 mm/hr Urine Color Colorless Yellow Urine Clarity Turbid H Clear Urine pH 8.0 5.0-9.0 Urine Specific [place] 1.036 H 1.001-1.035 Urine Protein Trace H Negative Urine Ketones Negative Negative Urine Blood 2+ H Negative /uL Urine Nitrite Negative Negative Urine Bilirubin Negative Negative Urine Urobilinogen Normal Negative mg/dL Urine Leukocyte Esterase 3+ Negative /uL Urine RBC 68 0 - 4 /hpf Urine Microscopic WBC 84 H 0-5 /HPF Urine Squamous Epithelial Cells Few <5 /hpf Urine Triple Phosphate Crystals Few None Seen /hpf Urine Bacteria None seen None Seen /hpf Urine Mucus Few None Seen Urine Glucose Normal Normal mg/dL Urine Opiates Screen Neg NEGATIVE Urine Fentanyl Screen Neg NEGATIVE Urine Barbiturates Screen Neg NEGATIVE Urine Phencyclidine Screen Neg NEGATIVE Urine Amphetamines Screen Pos NEGATIVE Urine Benzodiazepines Screen Neg NEGATIVE Urine Cocaine Screen Neg NEGATIVE Urine Cannabinoids Screen Neg NEGATIVE Test 06/27/25 07:34 06/27/25 02:28 Range/Units Prothrombin Time 11.0 9.3-11.8 sec Prothrombin Time INR 1.04 0.9-1.15 Activated Partial Thromboplast Time 34.4 24.5-34.5 SEC Eosinophils (%) (Auto) 2.2 0.0-7.0 % Eosinophils # (Auto) 0.2 0-0.8 10 ^3/uL Basophils # (Auto) 0 0-0.2 10 ^3/uL Nucleated Red Blood Cells 0.0 % Hemoglobin A1c < 3.8 <5.7 % A1C Lactic Acid Level 1.6 0.4-2.0 mmol/L Troponin I High Sensitivity < 3 L </=34 ng/L C-Reactive Protein High Sensitivity 11.93 H <1.0 mg/dL Thyroid Stimulating Hormone (TSH) 1.53 0.55-4.78 uIU/mL Microbiology Date/Time Source Procedure Growth Status 06/28/25 13:30 Stool Stool Culture - Preliminary Resulted 06/28/25 13:30 Stool Shiga Toxin I & II - Final Resulted 06/28/25 13:30 Stool Clostridium difficile Toxin Assay Pending Resulted 06/27/25 10:20 Voided Urine Urine Culture - Preliminary Resulted 06/27/25 02:28 Blood Blood Culture - Preliminary NO GROWTH AFTER 24 HOURS OF INCUBATION. Resulted Assessment * Sinus Bradycardia, Junctional Rhythm - avoid AV michelle blockers. TSH normal. Likely multifactorial. Patient referred for possible ppm in the past though refused at that time. Patient endorses now as well does not want any type of procedure/intervention/ppm. Continue conservative medical management. Continue telemetry monitoring. * Hypotension, septic shock, suspected pyelonephritis? - on IV antibiotics. Low-dose Levophed. Continue midodrine. Management per primary team. Check echo. * Stage IV cervical cancer - management primary team, no further treatment sought per patient, recommend palliative/possible hospice eval. * MIKO - improving with IV fluid hydration. Continue monitoring. * Bilateral nephrostomy tube - urology consulted. Case Discussed with Dr Morales. Continue tele monitoring. Patient states she does not want any type of procedure/surgery/ppm. Does not seem to be symptomatic. Follow up echo. Overall poor prognosis, recommend palliative/hospice eval. Patient wanting to go home, only wants her nephrostomy tubes changed out. Critical care, time spent: 40 minutes This medical document was created using an electronic medical record system with voice recognition software and computerized dictation system. Although this document has been carefully reviewed, there might still be some phonetic and typographical errors. Occasional wrong-word or ``sound-alike substitutions may have occurred due to the inherent limitations of voice recognition software. These areas are purely typographical due to imperfections of the software programs and do not reflect any compromise in the patient's medical care. Please read the chart carefully and recognize, using context, where these substitutions have occurred. Thank you for allowing me to participate in the management of this patient. The treatment plan was discussed with and agreed upon by patient/family including requesting consultants and ordering of imaging/procedures. Plan discussed with: Patient NYHA Physical activity limitations: NA Date of Service: Jun 28, 2025 Billing Provider: MALU SOTO Cardiology Common Codes: [id number] INP/OBS CARE (High), [id number] CARE 30-74 MIN MALU SOTO Jun 28, 2025 16:49
[2025-06-28] MEDS: ONDANSETRON HCL 4 MG/2 ML VIAL IV PRN (17:00)
--- NOTE | 2025-06-28 17:39 | DVHPN2 ---
Subjective Patient is 44 years old female with a past medical history of cervical carcinoma stage IV, status post bilateral nephrostomy done 1 year before likely due to bilateral hydronephrosis came with a complaint of bilateral flank pain going for for few days, 08/08. Associated with nausea and low-grade fever at home 99 F. patient denied any diarrhea, constipation, acute joint redness or swelling or sick contact. Initial lab workup revealed hemoglobin 9.0, hematocrit 27.8. serum creatinine 1.39. Urinalysis revealed leukocyte esterase 3+, RBC 68, WBC 84. CT abdomen and pelvis revealed1. Bilateral percutaneous nephrostomy tubes appear appropriately positioned. Unusual elongated hypodense appearance of the cervix as reported on the comparison exam. Suspected left upper urinary tract infection. Wall thickening of the cecum, ascending colon, and rectum. Stranding around the rectum may be inflammatory. Correlate for symptoms of colitis/proctitis. PMH-status post cervical carcinoma, bilateral hydronephrosis, status post bilateral nephrostomy tube placement PSH- bilateral nephrostomy tube placement 1 year before at [facility], surgery for cervical carcinoma, Allergy- morphine, penicillin Personal History/ Social History- denies smoking/alcoholism/drug abuse Cardiovascular- deny acute chest pain or shortness of breath or cough or palpitation Respiratory denies cough or short of breath or wheezing Gastrointestinal- denies any rectal bleeding, nausea or vomiting Musculoskeletal-denies acute joint swelling or tenderness or redness Neurological- denies acute dysarthria, dysphagia, change in vision Psychiatry- denies depression or SI or HI Skin- denies acute rash or purpura Seen at bedside today,. Reviewed: Care Plan Changes from previous H/P or p: No Changes General: Per HPI Eyes: No Pain, No Vision change, No Conjunctivae inflammation, No Eyelid inflammation, No Other, No Redness ENT: No Ear pain, No Ear discharge, No Nose pain, No Nose discharge, No Nose congestion, No Mouth pain, No Mouth swelling, No Throat pain, No Throat swelling, No Other Cardiovascular: No Chest Pain, No Palpitations, No Orthopnea, No Paroxysmal Noc. Dyspnea, No Edema, No Lt Headedness, No Other Respiratory: No Cough, No Dry, No Shortness of breath, No SOB with excertion, No Wheezing, No Hemoptysis, No Pleuritic Pain, No Sputum, No Other Gastrointestinal: Nausea; No Vomiting, No Abdominal Pain, No Diarrhea, No Constipation, No Melena; Hematochezia, Other Genitourinary: Other (Bilateral flank pain) Musculoskeletal: No other, No neck pain, No shoulder pain, No arm pain, No back pain, No hand pain, No leg pain, No foot pain Skin: No Rash, No Lesions, No Jaundice, No Bruising, No Other Objective Vitals Vital Signs Date Time Temp Pulse Resp B/P (MAP) Pulse Ox O2 Delivery O2 Flow Rate FiO2 06/28/25 17:00 93/61 06/28/25 16:00 63 06/28/25 14:15 20 100 06/28/25 11:00 97.9 97.9 06/28/25 08:00 Room Air* 0 21 Intake/Output Intake and Output 06/28/25 07:00 Intake Total 2716 ml Output Total 400 ml Balance 2316 ml Intake IV Total 2716 ml Output Urine Total 400 ml Medications Current Medications Medications Dose Ordered Sig/Santiago Route Start Time Stop Time Status Last Admin Dose Admin Acetaminophen 325 mg Q4HP PRN PO 06/27/25 05:00 Acetaminophen/ Hydrocodone Bitart 1 tab Q4HP PRN PO 06/27/25 05:00 06/27/25 10:54 1 TAB Ondansetron HCl 4 mg Q4HP PRN IV 06/27/25 05:00 06/28/25 17:00 4 MG Docusate Sodium 100 mg BIDPRN PRN PO 06/27/25 05:00 Morphine Sulfate 2 mg Q6HPRN PRN IV 06/27/25 05:30 Hold Pantoprazole Sodium 40 mg BID IV 06/27/25 22:00 06/28/25 10:08 40 MG Meropenem 50 ml @ 17 mls/hr Q8HR IV 06/27/25 14:00 06/28/25 14:45 17 MLS/HR Lactated Ringer's 1,000 ml @ 40 mls/hr Q24H IV 06/27/25 12:15 06/27/25 15:24 40 MLS/HR Norepinephrine Bitartrate 250 ml @ 3.75 mls/hr Q24H IV 06/27/25 16:30 06/27/25 17:42 3.75 MLS/HR Vancomycin HCl 0 ml @ 0 mls/hr UD IV 06/27/25 16:45 Midodrine 10 mg TID@0600,1200,1800 PO 06/27/25 17:15 06/28/25 12:18 10 MG Hydrocortisone Sodium Succinate 100 mg Q8HR IV 06/27/25 17:15 07/02/25 17:14 06/28/25 14:46 100 MG Vancomycin HCl 100 ml @ 200 mls/hr Q12H IV 06/28/25 09:00 06/28/25 09:00 200 MLS/HR Dopamine HCl/ Dextrose 250 ml @ 7.688 mls/ hr Q24H IV 06/28/25 16:00 06/28/25 16:39 7.688 MLS/HR Prochlorperazine Edisylate 5 mg Q6HPRN PRN IV 06/28/25 16:00 Diphenhydramine HCl 50 mg Q4H PRN IV 06/28/25 18:00 Laboratory Results Laboratory Tests 06/28/25 04:08 Chemistry Test 06/28/25 04:08 Albumin 3.5 g/dL (3.2-4.8) Calcium Level 8.5 mg/dL (8.7-10.4) L Magnesium Level 1.9 mg/dL (1.6-2.6) Total Protein 6.5 g/dL (5.7-8.2) LFT Test 06/28/25 04:08 Alanine Aminotransferase (ALT) 22 U/L (7-40) Alkaline Phosphatase 172 U/L (46-116) H Aspartate Amino Transferase (AST) 20 U/L (13-40) Total Bilirubin 0.2 mg/dL (0.2-1.0) Urinalysis Test 06/27/25 10:20 Urine Color Colorless (Yellow) Urine Clarity Turbid (Clear) H Urine pH 8.0 (5.0-9.0) Urine Specific [place] 1.036 (1.001-1.035) Urine Protein Trace (Negative) H Urine Ketones Negative (Negative) Urine Blood 2+ /uL (Negative) H Urine Nitrite Negative (Negative) Urine Bilirubin Negative (Negative) Urine Urobilinogen Normal mg/dL (Negative) Urine Leukocyte Esterase 3+ /uL (Negative) Urine RBC 68 /hpf (0 - 4) Urine Microscopic WBC 84 /HPF (0-5) H Urine Squamous Epithelial Cells Few /hpf (<5) Urine Triple Phosphate Crystals Few /hpf (None Seen) Urine Bacteria None seen /hpf (None Seen) Urine Mucus Few (None Seen) Urine Glucose Normal mg/dL (Normal) Microbiology Microbiology Date/Time Source Procedure Growth Status 06/28/25 13:30 Stool Stool Culture - Preliminary Resulted 06/28/25 13:30 Stool Shiga Toxin I & II - Final Resulted 06/28/25 13:30 Stool Clostridium difficile Toxin Assay Pending Resulted 06/27/25 10:20 Voided Urine Urine Culture - Preliminary Resulted 06/27/25 02:28 Blood Blood Culture - Preliminary NO GROWTH AFTER 24 HOURS OF INCUBATION. Resulted Labs and/or images reviewed: Labs reviewed by me, Image(s) reviewed by me Assessment/Plan Assessment/Plan 06/27: Patient was seen today at bedside, labs and chart reviewed. Patient reported ongoing bilateral flank pain, patient reported poor appetite. Pending Urology consult, on antibiotic meropenem. Patient with a hypotension even after IV fluid bolus. Patient was started on Levophed due to hypotension. Pending blood culture and uterine culture, ordered midodrine 10 mg p.o. t.i.d., hydrocortisone 100 mg IV t.i.d, ordered PICC line. 06/28: Patient remains on Levophed, bradycardic multiple times overnight. Cardiology consulted for bradycardia workup. Patient's pain is better controlled with Benadryl, we will continue IV. S prn. Patient also had headaches we will trial Tylenol 1st line, Compazine second-line. Continuing broad-spectrum IV antibiotics, Urology consulted. For blood pressure control goal is to keep map more than 60, using Levophed, adding dopamine today. Dopamine goal heart rate > 40 and < 100. Otherwise continue original plan. # sepsis likely due to pyelonephritis # suspected acute pyelonephritis #Mild left hydroureteronephrosis # acute complicated UTI # bilateral nephrostomy tube in place -continue IV fluid as prescribed -continue IV antibiotic meropenem -pending Urology consult -monitor CBC, CMP -pending blood culture, uterine culture # failure to thrive -ordered dietary consult # history of cervical carcinoma stage IV -follow up with outpatient oncologist # anemia likely due to anemia chronic disease --ordered iron profile, ferritin -monitor CBC # suspected colitis/proctitis -continue IV antibiotic and IV fluid as prescribed # MIKO likely due to VMN -avoid dehydration and nephrotoxic drugs -continue IV fluid as prescribed -monitor CMP Goals of care, Code status ; discussed with >15 minutes PUD prophylaxis: Pantoprazole DVT prophylaxis: Lovenox ICU Full code Plan discussed with: Patient My Orders Orders - NONA SHEARER MD Procedure Category Date Status Time Dopamine 1600mcg/Ml PHA 06/28/25 In Process D5W 16:00 Prochlorperazine Inj PHA 06/28/25 In Process (Compazine Inj) 16:00 Diphenhdramine PHA 06/28/25 In Process Injection (Benadryl 18:00 Date of Service: Jun 28, 2025 Billing Provider: NONA SHEARER MD Common Visit Codes: [id number] CARE 30-74 MIN NONA SHEARER MD Jun 28, 2025 17:39
[2025-06-28 19:30] VITALS: PULSE 45; RESP 16; O2SAT 98
[2025-06-29] VITALS (50 sets, daily range): BP systolic 80–155; BP diastolic 38–89; PULSE 42–68; RESP 9–30; TEMP 98.4; O2SAT 95–100
[2025-06-29 08:26] LABS: Hematocrit 26.7 % (36.0-46.0); Hemoglobin 8.8 g/dL (12.2-16.2); Mean Corpuscular Hemoglobin 31.3 pg (28.0-32.0); Mean Corpuscular Volume 95.6 fL (80.0-100.0); Nucleated Red Blood Cells % 0.0 %
[2025-06-29 09:44] LABS: Alanine Aminotransferase 16 U/L (7-40); Albumin 3.3 g/dL (3.2-4.8); Anion Gap 9 (5-15); BUN/Creatinine Ratio 10.3 (10.0-20.0); Blood Urea Nitrogen 12 mg/dL (9-23); Carbon Dioxide 24 mmol/L (20-31); Sodium 143 mmol/L (136-145); Total Protein 6.5 g/dL (5.7-8.2)
[2025-06-29 09:55] LABS: Alkaline Phosphatase 133 U/L (46-116); Bilirubin, Total < 0.2 mg/dL (0.2-1.0); Calcium 8.6 mg/dL (8.7-10.4); Chloride 110 mmol/L (98-107); Glucose 150 mg/dL (74-106); Potassium 3.2 mmol/L (3.5-5.1)
--- NOTE | 2025-06-29 09:57 | DVHPN2 ---
Consult Progress Note Subjective Patient reports: No new complaints Objective vital signs Vital Sign Date Time Temp Pulse Resp B/P (MAP) Pulse Ox O2 Delivery O2 Flow Rate FiO2 06/29/25 08:00 43 06/29/25 08:00 134/76 06/29/25 08:00 98.4 15 99 98.4 06/28/25 19:30 Room Air* 0 21 Total Intake and Output 06/28/25 06/28/25 06/29/25 15:00 23:00 07:00 Intake Total 150 ml 100 ml 57.688 ml Output Total 800 ml 300 ml Balance -650 ml -200 ml 57.688 ml medications Current Medications Medications Dose Ordered Sig/Santiago Route Start Time Stop Time Status Last Admin Dose Admin Acetaminophen 325 mg Q4HP PRN PO 06/27/25 05:00 Acetaminophen/ Hydrocodone Bitart 1 tab Q4HP PRN PO 06/27/25 05:00 06/27/25 10:54 Ondansetron HCl 4 mg Q4HP PRN IV 06/27/25 05:00 06/28/25 17:00 Docusate Sodium 100 mg BIDPRN PRN PO 06/27/25 05:00 Morphine Sulfate 2 mg Q6HPRN PRN IV 06/27/25 05:30 Hold Pantoprazole Sodium 40 mg BID IV 06/27/25 22:00 06/28/25 22:52 Meropenem 50 ml @ 17 mls/hr Q8HR IV 06/27/25 14:00 06/29/25 05:46 Lactated Ringer's 1,000 ml @ 40 mls/hr Q24H IV 06/27/25 12:15 06/27/25 15:24 Norepinephrine Bitartrate 250 ml @ 3.75 mls/hr Q24H IV 06/27/25 16:30 06/27/25 17:42 Vancomycin HCl 0 ml @ 0 mls/hr UD IV 06/27/25 16:45 Midodrine 10 mg TID@0600,1200,1800 PO 06/27/25 17:15 06/29/25 05:46 Hydrocortisone Sodium Succinate 100 mg Q8HR IV 06/27/25 17:15 07/02/25 17:14 06/29/25 05:46 Vancomycin HCl 100 ml @ 200 mls/hr Q12H IV 06/28/25 09:00 06/28/25 21:10 Dopamine HCl/ Dextrose 250 ml @ 7.688 mls/ hr Q24H IV 06/28/25 16:00 06/28/25 16:39 Prochlorperazine Edisylate 5 mg Q6HPRN PRN IV 06/28/25 16:00 Diphenhydramine HCl 50 mg Q4H PRN IV 06/28/25 18:00 06/29/25 06:39 laboratory and microbiology Laboratory Tests 06/29/25 07:55 Test 06/29/25 07:55 Range/Units Serum Glucose Pending Problem List/Assessment/Plan Problem List/Assessment/Plan * Sinus Bradycardia, Junctional Rhythm - avoid AV michelle blockers. TSH normal. Likely multifactorial. Patient referred for possible ppm in the past though refused at that time. Patient endorses now as well does not want any type of procedure/intervention/ppm. Continue conservative medical management. Continue telemetry monitoring. burrent on dopamine drip. * Hypotension, septic shock, suspected pyelonephritis? - on IV antibiotics. On dopamine drip, BP stable. Continue midodrine. Management per primary team. Check echo. * Stage IV cervical cancer - management primary team, no further treatment sought per patient, recommend palliative/possible hospice eval. * MIKO - improving with IV fluid hydration. Continue monitoring. * Bilateral nephrostomy tube - urology consulted. Case Discussed with Dr Morales. Continue tele monitoring. Patient states she does not want any type of procedure/surgery/ppm. Does not seem to be symptomatic. Follow up echo. Overall poor prognosis, recommend palliative/hospice eval. Patient wanting to go home, only wants her nephrostomy tubes changed out. Critical care, time spent: 40 minutes This medical document was created using an electronic medical record system with voice recognition software and computerized dictation system. Although this document has been carefully reviewed, there might still be some phonetic and typographical errors. Occasional wrong-word or ``sound-alike substitutions may have occurred due to the inherent limitations of voice recognition software. These areas are purely typographical due to imperfections of the software programs and do not reflect any compromise in the patient's medical care. Please read the chart carefully and recognize, using context, where these substitutions have occurred. Thank you for allowing me to participate in the management of this patient. The treatment plan was discussed with and agreed upon by patient/family including requesting consultants and ordering of imaging/procedures. Plan discussed with: Patient Dietary Evaluation Review Recommendations by RD: Dietary education by RD, Protein Supplementation Comments: 1) Initiiate Ensure Enlive tid 2) Encourage optimal PO intake 3) Refer to outpatinet RD for weight management 4) Follow up with oncology and urology 5) Continue to monitor I&O, labs, and skin integrity Expected Outcomes/Goals: 1) appetite and labs to improve 2) gradual wt gain 3) f/u in 3-5 days Date of Service: Jun 29, 2025 Billing Provider: MALU SOTO Common Visit Codes: [id number] INP/OBS CARE(HIGH), [id number] CARE 30-74 MIN MALU SOTO Jun 29, 2025 09:56
[2025-06-29] MEDS: POTASSIUM EFFERVESENT TAB 25 MEQ PO ONE (11:54)
--- NOTE | 2025-06-29 13:00 | DVHPNRES ---
Progress Note Date Seen: Jun 29, 2025 Resident Creating Document: UVALDO GORDILLO RESIDENT Medical Necessity Reason Pt with a Central, PICC or Fol: Yes Subjective Review of Systems Patient is 44 years old female with a past medical history of cervical carcinoma stage IV, status post bilateral nephrostomy done 1 year before likely due to bilateral hydronephrosis came with a complaint of bilateral flank pain going for for few days, 08/08. Associated with nausea and low-grade fever at home 99 F. patient denied any diarrhea, constipation, acute joint redness or swelling or sick contact. Initial lab workup revealed hemoglobin 9.0, hematocrit 27.8. serum creatinine 1.39. Urinalysis revealed leukocyte esterase 3+, RBC 68, WBC 84. CT abdomen and pelvis revealed1. Bilateral percutaneous nephrostomy tubes appear appropriately positioned. Unusual elongated hypodense appearance of the cervix as reported on the comparison exam. Suspected left upper urinary tract infection. Wall thickening of the cecum, ascending colon, and rectum. Stranding around the rectum may be inflammatory. Correlate for symptoms of colitis/proctitis. PMH-status post cervical carcinoma, bilateral hydronephrosis, status post bilateral nephrostomy tube placement PSH- bilateral nephrostomy tube placement 1 year before at [facility], surgery for cervical carcinoma, Allergy- morphine, penicillin Personal History/ Social History- denies smoking/alcoholism/drug abuse Cardiovascular- deny acute chest pain or shortness of breath or cough or palpitation Respiratory denies cough or short of breath or wheezing Gastrointestinal- denies any rectal bleeding, nausea or vomiting Musculoskeletal-denies acute joint swelling or tenderness or redness Neurological- denies acute dysarthria, dysphagia, change in vision Psychiatry- denies depression or SI or HI Skin- denies acute rash or purpura Patient was seen today at bedside, labs and chart reviewed. Patient has leukocytosis likely due to steroid on top of pyelonephritis. Blood culture no growth, urine culture contaminated sample. Patient is off of Levophed. Patient is seen by Cardiology, recommendation reviewed and appreciated. MIKO improving on IV fluid. Plan is to titrate down dopamine and turn it off. Objective vital signs Vital Sign Date Time Temp Pulse Resp B/P (MAP) Pulse Ox O2 Delivery O2 Flow Rate FiO2 06/29/25 11:30 46 16 91/58 (69) 99 06/29/25 10:00 Room Air* 0 21 06/29/25 08:00 98.4 98.4 Total Intake and Output 06/28/25 06/28/25 06/29/25 15:00 23:00 07:00 Intake Total 150 ml 100 ml 57.688 ml Output Total 800 ml 300 ml Balance -650 ml -200 ml 57.688 ml medications Current Medications Medications Dose Ordered Sig/Santiago Route Start Time Stop Time Status Last Admin Dose Admin Acetaminophen 325 mg Q4HP PRN PO 06/27/25 05:00 Acetaminophen/ Hydrocodone Bitart 1 tab Q4HP PRN PO 06/27/25 05:00 06/27/25 10:54 1 TAB Ondansetron HCl 4 mg Q4HP PRN IV 06/27/25 05:00 06/28/25 17:00 4 MG Docusate Sodium 100 mg BIDPRN PRN PO 06/27/25 05:00 Morphine Sulfate 2 mg Q6HPRN PRN IV 06/27/25 05:30 Hold Pantoprazole Sodium 40 mg BID IV 06/27/25 22:00 06/29/25 10:07 40 MG Meropenem 50 ml @ 17 mls/hr Q8HR IV 06/27/25 14:00 06/29/25 05:46 17 MLS/HR Lactated Ringer's 1,000 ml @ 40 mls/hr Q24H IV 06/27/25 12:15 06/29/25 11:55 40 MLS/HR Norepinephrine Bitartrate 250 ml @ 3.75 mls/hr Q24H IV 06/27/25 16:30 06/27/25 17:42 3.75 MLS/HR Vancomycin HCl 0 ml @ 0 mls/hr UD IV 06/27/25 16:45 Midodrine 10 mg TID@0600,1200,1800 PO 06/27/25 17:15 06/29/25 11:59 10 MG Hydrocortisone Sodium Succinate 100 mg Q8HR IV 06/27/25 17:15 07/02/25 17:14 06/29/25 05:46 100 MG Vancomycin HCl 100 ml @ 200 mls/hr Q12H IV 06/28/25 09:00 06/29/25 09:00 200 MLS/HR Dopamine HCl/ Dextrose 250 ml @ 7.688 mls/ hr Q24H IV 06/28/25 16:00 06/28/25 16:39 7.688 MLS/HR Prochlorperazine Edisylate 5 mg Q6HPRN PRN IV 06/28/25 16:00 Diphenhydramine HCl 50 mg Q4H PRN IV 06/28/25 18:00 06/29/25 06:39 50 MG Examination General examination- awake, alert, oriented, cachexia, malnourished HEENT- PEERLA, no acute nasal discharge Cardiovascular- S1-S2 audible, rate and rhythm regular, no murmur Respiratory- CTAB, no wheeze or rhonchi Gastrointestinal-nontender, bowel sound+. Nondistended Musculoskeletal-no acute joint swelling or tenderness or redness Renal system-bilateral renal angle tenderness++, bilateral nephrostomy tube in place Lower extremity- bilateral muscle wasting Neurological- cranial nerves intact, no acute dysarthria or dysphagia Psychiatry- denies depression or SI or HI Skin- no acute rash or purpura laboratory and microbiology Laboratory Tests 06/29/25 07:55 Test 06/29/25 07:55 Range/Units Serum Glucose 150 H 74-106 mg/dL Microbiology Date/Time Source Procedure Growth Status 06/28/25 13:30 Stool Stool Culture - Preliminary Resulted 06/28/25 13:30 Stool Shiga Toxin I & II - Final Resulted 06/28/25 13:30 Stool Clostridium difficile Toxin Assay Pending Resulted 06/27/25 10:20 Voided Urine Urine Culture - Preliminary Resulted 06/27/25 02:28 Blood Blood Culture - Preliminary NO GROWTH AFTER 48 HOURS OF INCUBATION. Resulted Problem List/Assessment/Plan Problem List/Assessment/Plan Assessment and plan # septic shock likely due to pyelonephritis # suspected acute pyelonephritis #Mild left hydroureteronephrosis # acute complicated UTI # bilateral nephrostomy tube in place -continue IV fluid as prescribed -continue IV antibiotic meropenem and vancomycin -off Levophed -plan is to titrate down dopamine and turn it of -Urology consult-spoke to Dr. Veras recommended to continue conservative management if nephrostomy tube draining urine, wait until MONDAY until IR comes back. -monitor CBC, CMP -blood culture negative -urine culture contaminated sample # failure to thrive -ordered dietary consult #Sinus Bradycardia, Junctional Rhythm - avoid AV michelle blockers -status post cardiology consult -cardiology recommended for permanent pacemaker, patient refused, patient wished to continue medical management -plan is to titrate down dopamine and turn it off. # MIKO likely due to VMN -avoid dehydration and nephrotoxic drugs -continue IV fluid as prescribed -monitor CMP # history of cervical carcinoma stage IV -follow up with outpatient oncologist # anemia likely due to anemia chronic disease --ordered iron profile, ferritin -monitor CBC # suspected colitis/proctitis -continue IV antibiotic and IV fluid as prescribed Goals of care, Code status ; discussed with >15 minutes PUD prophylaxis: Pantoprazole DVT prophylaxis: Lovenox Plan discussed with Dr. Gutierrez , nursing staff, Total time spent on patient evaluation, chart review, assessment and plan, discussion discussion >35 minutes Plan discussed with: Patient, Other (RN) Dietary Evaluation Review Recommendations by RD: Dietary education by RD, Protein Supplementation Comments: 1) Initiiate Ensure Enlive tid 2) Encourage optimal PO intake 3) Refer to outpatinet RD for weight management 4) Follow up with oncology and urology 5) Continue to monitor I&O, labs, and skin integrity Expected Outcomes/Goals: 1) appetite and labs to improve 2) gradual wt gain 3) f/u in 3-5 days Date of Service: Jun 29, 2025 Billing Provider: NONA SHEARER MD Common Visit Codes: [id number] CARE 30-74 MIN UVALDO GORDILLO RESIDENT Jun 29, 2025 13:00 NONA SHEARER MD Jun 29, 2025 22:41
--- NOTE | 2025-06-29 15:27 | DVHSR ---
APPROVED REPORT EXAM: Two-dimensional and M-mode echocardiogram with Doppler and color Doppler. Blood Pressure: 82/52 mmHg INDICATION Hypotension Bradycardia RISK FACTORS Height: 5'7", Weight: 90 DIMENSIONS LVDd3.7 (3.8-5.7cm)LA (2D)4.0 (1.9-4.0cm)Aortic Root (2.0-3.7cm) LVDs2.5 (2.5-4.0cm)LA (MM) (1.9-4.0cm)Aortic Cusp Exc (1.5-2.0cm) EF (%) 60.0 (55-70%)Rt. Atrium3.2 (1.9-4.0cm)Asc. Aorta cm IVSd0.7 (0.7-1.1cm)RV (D) (1.8-2.4cm) PWd1.0 (0.7-1.1cm) Mitral Valve MitralMitral Stenosis E wave1.08m/sMV Mean GR.mmHg A wave0.76m/sMV Peak GR.mmHg E/A ratio1.42D MVAcm2 DECEL [id number] 1/2 Timems Aortic Valve Aortic ValveAortic Stenosis V11.25m/Peter Mean GR.5mmHg V21.70m/Peter Peak GR.12mmHg LVOT Diameter1.7 (1.8-2.4cm)Doppler AVA1.67cm2 Pulmonic Valve V20.94m/s Tricuspid Valve TR Velocity2.78m/s [id number] Other Information Quality : Technically LimitedRhythm : Technically limited study due to body habitus. Conclusion Technically good study sinus rhythm. Normal chamber sizes. Normal valves. 65% ejection fraction. Normal RV function. Unremarkable Doppler. No pericardial effusion masses or vegetations.
[2025-06-30] VITALS (47 sets, daily range): BP systolic 67–127; BP diastolic 38–82; PULSE 47–96; RESP 12–21; TEMP 97.7–98; O2SAT 96–100
[2025-06-30 06:19] LABS: Alanine Aminotransferase 24 U/L (7-40); Albumin 3.4 g/dL (3.2-4.8); Anion Gap 9 (5-15); BUN/Creatinine Ratio 8.1 (10.0-20.0); Carbon Dioxide 28 mmol/L (20-31); Chloride 105 mmol/L (98-107); Magnesium 1.9 mg/dL (1.6-2.6); Potassium 3.6 mmol/L (3.5-5.1); Sodium 142 mmol/L (136-145); Total Protein 6.4 g/dL (5.7-8.2)
[2025-06-30 06:27] LABS: Alkaline Phosphatase 130 U/L (46-116); Bilirubin, Total 0.2 mg/dL (0.2-1.0); Blood Urea Nitrogen 9 mg/dL (9-23); Calcium 8.6 mg/dL (8.7-10.4); Glucose 129 mg/dL (74-106)
[2025-06-30 06:33] LABS: Hemoglobin 9.3 g/dL (12.2-16.2)
[2025-06-30 06:38] LABS: Hematocrit 28.4 % (36.0-46.0); Mean Corpuscular Hemoglobin 31.3 pg (28.0-32.0); Mean Corpuscular Volume 95.8 fL (80.0-100.0)
[2025-06-30 08:27] LABS: Total Cells Counted 100.0 (100)
--- NOTE | 2025-06-30 09:07 | DVHPN2 ---
Consult Progress Note Date Seen: Jun 30, 2025 Subjective Review of Systems: CVS:Normal, RESPIRATORY:Normal, NEURO:Normal Objective vital signs Vital Sign Date Time Temp Pulse Resp B/P (MAP) Pulse Ox O2 Delivery O2 Flow Rate FiO2 06/30/25 08:00 60 06/30/25 06:41 14 125/76 (92) 98 06/30/25 03:02 97.6 97.6 06/29/25 20:11 Room Air* 0 21 Total Intake and Output 06/29/25 06/29/25 06/30/25 15:00 23:00 07:00 Intake Total 8111.052 ml 568.416 ml 356.938 ml Output Total 400 ml 900 ml Balance 8111.052 ml 168.416 ml -543.062 ml medications Current Medications Medications Dose Ordered Sig/Santiago Route Start Time Stop Time Status Last Admin Dose Admin Acetaminophen 325 mg Q4HP PRN PO 06/27/25 05:00 Acetaminophen/ Hydrocodone Bitart 1 tab Q4HP PRN PO 06/27/25 05:00 06/27/25 10:54 1 TAB Ondansetron HCl 4 mg Q4HP PRN IV 06/27/25 05:00 06/28/25 17:00 4 MG Docusate Sodium 100 mg BIDPRN PRN PO 06/27/25 05:00 Morphine Sulfate 2 mg Q6HPRN PRN IV 06/27/25 05:30 Hold Pantoprazole Sodium 40 mg BID IV 06/27/25 22:00 06/29/25 23:01 40 MG Meropenem 50 ml @ 17 mls/hr Q8HR IV 06/27/25 14:00 06/30/25 05:38 17 MLS/HR Lactated Ringer's 1,000 ml @ 40 mls/hr Q24H IV 06/27/25 12:15 06/29/25 11:55 40 MLS/HR Norepinephrine Bitartrate 250 ml @ 3.75 mls/hr Q24H IV 06/27/25 16:30 06/27/25 17:42 3.75 MLS/HR Vancomycin HCl 0 ml @ 0 mls/hr UD IV 06/27/25 16:45 Midodrine 10 mg TID@0600,1200,1800 PO 06/27/25 17:15 06/29/25 16:59 10 MG Hydrocortisone Sodium Succinate 100 mg Q8HR IV 06/27/25 17:15 07/02/25 17:14 06/30/25 05:38 100 MG Vancomycin HCl 100 ml @ 200 mls/hr Q12H IV 06/28/25 09:00 06/29/25 21:09 200 MLS/HR Dopamine HCl/ Dextrose 250 ml @ 7.688 mls/ hr Q24H IV 06/28/25 16:00 06/29/25 14:26 7.688 MLS/HR Prochlorperazine Edisylate 5 mg Q6HPRN PRN IV 06/28/25 16:00 Diphenhydramine HCl 50 mg Q4H PRN IV 06/28/25 18:00 06/30/25 03:22 50 MG Examination: LUNGS:Normal, CVS:Normal, NEURO:Normal laboratory and microbiology Laboratory Tests 06/30/25 05:20 Test 06/30/25 05:20 Range/Units Serum Glucose 129 H 74-106 mg/dL Problem List/Assessment/Plan Problem List/Assessment/Plan * Sinus Bradycardia, Junctional Rhythm - avoid AV michelle blockers. TSH normal. Likely multifactorial. Patient referred for possible ppm in the past though refused at that time. Patient endorses now as well does not want any type of procedure/intervention/ppm. Continue conservative medical management. Continue telemetry monitoring. Currently on Dopamine at 5 mcg/kg/min. At rest, HR 40s bpm, upon waking up for evaluation HR increased to 70s bpm with optimal chronotropic response. Titrate off Dopamine as tolerated. TTE unremarkable, see report. * Hypotension, septic shock, suspected pyelonephritis? - on IV antibiotics. On dopamine drip, BP stable. Continue midodrine. Management per primary team. TTE unremarkable, see report. * Stage IV cervical cancer - management primary team, no further treatment sought per patient, recommend palliative/possible hospice eval. * MIKO - improving with IV fluid hydration. Continue monitoring. * Bilateral nephrostomy tube - urology consulted. Case Discussed with Dr Morales. Continue tele monitoring. Refuses any invasive cardiac procedures including a permanent pacemaker. Asymptomatic. Titrate off Dopamine drip. TTE unremarkable. Overall poor prognosis, recommend palliative/hospice eval. Patient wanting to go home, only wants her nephrostomy tubes changed out. Thank you for allowing me to participate in the management of this patient. Critical care, time spent: 30 minutes. This medical document was created using an electronic medical record system with voice recognition software and computerized dictation system. Although this document has been carefully reviewed, there might still be some phonetic and typographical errors. Occasional wrong-word or ``sound-alike substitutions may have occurred due to the inherent limitations of voice recognition software. These areas are purely typographical due to imperfections of the software programs and do not reflect any compromise in the patient's medical care. Please read the chart carefully and recognize, using context, where these substitutions have occurred. Plan discussed with: Patient, Spouse, Other Dietary Evaluation Review Recommendations by RD: Dietary education by RD, Protein Supplementation Comments: 1) Initiiate Ensure Enlive tid 2) Encourage optimal PO intake 3) Refer to outpatinet RD for weight management 4) Follow up with oncology and urology 5) Continue to monitor I&O, labs, and skin integrity Expected Outcomes/Goals: 1) appetite and labs to improve 2) gradual wt gain 3) f/u in 3-5 days Date of Service: Jun 30, 2025 Billing Provider: YUE LENZ Cardiology Common Codes: [id number] CARE 30-74 MIN YUE LENZ Jun 30, 2025 09:07
--- NOTE | 2025-06-30 13:36 | DVHPNRES ---
Progress Note Date Seen: Jun 30, 2025 Resident Creating Document: UVALDO GORDILLO RESIDENT Medical Necessity Reason Pt with a Central, PICC or Fol: Yes Subjective Review of Systems Patient is 44 years old female with a past medical history of cervical carcinoma stage IV, status post bilateral nephrostomy done 1 year before likely due to bilateral hydronephrosis came with a complaint of bilateral flank pain going for for few days, 08/08. Associated with nausea and low-grade fever at home 99 F. patient denied any diarrhea, constipation, acute joint redness or swelling or sick contact. Initial lab workup revealed hemoglobin 9.0, hematocrit 27.8. serum creatinine 1.39. Urinalysis revealed leukocyte esterase 3+, RBC 68, WBC 84. CT abdomen and pelvis revealed1. Bilateral percutaneous nephrostomy tubes appear appropriately positioned. Unusual elongated hypodense appearance of the cervix as reported on the comparison exam. Suspected left upper urinary tract infection. Wall thickening of the cecum, ascending colon, and rectum. Stranding around the rectum may be inflammatory. Correlate for symptoms of colitis/proctitis. PMH-status post cervical carcinoma, bilateral hydronephrosis, status post bilateral nephrostomy tube placement PSH- bilateral nephrostomy tube placement 1 year before at [facility], surgery for cervical carcinoma, Allergy- morphine, penicillin Personal History/ Social History- denies smoking/alcoholism/drug abuse Cardiovascular- deny acute chest pain or shortness of breath or cough or palpitation Respiratory denies cough or short of breath or wheezing Gastrointestinal- denies any rectal bleeding, nausea or vomiting Musculoskeletal-denies acute joint swelling or tenderness or redness Neurological- denies acute dysarthria, dysphagia, change in vision Psychiatry- denies depression or SI or HI Skin- denies acute rash or purpura Patient was seen today at bedside, labs and chart reviewed. Serum creatinine trending down to 1.11. Echo 2D done on 0 06/28/25 revealed -LVEF 65%, others unremarkable. No fever noted overnight. Patient is seen by Cardiology, recommendation reviewed and appreciated. Patient is still on dopamine. Patient's blood pressure drops on titrating down dopamine level. We will continue trying on - titrate down dopamine and turn it off. Objective vital signs Vital Sign Date Time Temp Pulse Resp B/P (MAP) Pulse Ox O2 Delivery O2 Flow Rate FiO2 06/30/25 12:00 59 06/30/25 11:15 18 90/60 (70) 97 06/30/25 10:00 Room Air* 0 21 06/30/25 08:00 98.0 98.0 Total Intake and Output 06/29/25 06/29/25 06/30/25 15:00 23:00 07:00 Intake Total 8111.052 ml 568.416 ml 409.238 ml Output Total 400 ml 900 ml Balance 8111.052 ml 168.416 ml -490.762 ml medications Current Medications Medications Dose Ordered Sig/Santiago Route Start Time Stop Time Status Last Admin Dose Admin Acetaminophen 325 mg Q4HP PRN PO 06/27/25 05:00 Acetaminophen/ Hydrocodone Bitart 1 tab Q4HP PRN PO 06/27/25 05:00 06/27/25 10:54 1 TAB Ondansetron HCl 4 mg Q4HP PRN IV 06/27/25 05:00 06/28/25 17:00 4 MG Docusate Sodium 100 mg BIDPRN PRN PO 06/27/25 05:00 Morphine Sulfate 2 mg Q6HPRN PRN IV 06/27/25 05:30 Hold Pantoprazole Sodium 40 mg BID IV 06/27/25 22:00 06/30/25 08:33 40 MG Meropenem 50 ml @ 17 mls/hr Q8HR IV 06/27/25 14:00 06/30/25 05:38 17 MLS/HR Lactated Ringer's 1,000 ml @ 40 mls/hr Q24H IV 06/27/25 12:15 06/30/25 11:41 40 MLS/HR Norepinephrine Bitartrate 250 ml @ 3.75 mls/hr Q24H IV 06/27/25 16:30 06/30/25 09:50 3.75 MLS/HR Vancomycin HCl 0 ml @ 0 mls/hr UD IV 06/27/25 16:45 Midodrine 10 mg TID@0600,1200,1800 PO 06/27/25 17:15 06/29/25 16:59 10 MG Hydrocortisone Sodium Succinate 100 mg Q8HR IV 06/27/25 17:15 07/02/25 17:14 06/30/25 05:38 100 MG Vancomycin HCl 100 ml @ 200 mls/hr Q12H IV 06/28/25 09:00 06/30/25 08:33 200 MLS/HR Dopamine HCl/ Dextrose 250 ml @ 7.688 mls/ hr Q24H IV 06/28/25 16:00 06/30/25 08:34 7.688 MLS/HR Prochlorperazine Edisylate 5 mg Q6HPRN PRN IV 06/28/25 16:00 Diphenhydramine HCl 50 mg Q4H PRN IV 06/28/25 18:00 06/30/25 12:58 50 MG Examination General examination- awake, alert, oriented, cachexia, malnourished HEENT- PEERLA, no acute nasal discharge Cardiovascular- S1-S2 audible, rate and rhythm regular, no murmur Respiratory- CTAB, no wheeze or rhonchi Gastrointestinal-nontender, bowel sound+. Nondistended Musculoskeletal-no acute joint swelling or tenderness or redness Renal system-bilateral renal angle tenderness++, bilateral nephrostomy tube in place Lower extremity- bilateral muscle wasting Neurological- cranial nerves intact, no acute dysarthria or dysphagia Psychiatry- denies depression or SI or HI Skin- no acute rash or purpura laboratory and microbiology Laboratory Tests 06/30/25 05:20 Test 06/30/25 05:20 Range/Units Serum Glucose 129 H 74-106 mg/dL Microbiology Date/Time Source Procedure Growth Status 06/28/25 13:30 Stool Stool Culture - Preliminary Resulted 06/28/25 13:30 Stool Shiga Toxin I & II - Final Resulted 06/28/25 13:30 Stool Clostridium difficile Toxin Assay - Final Resulted 06/27/25 10:20 Voided Urine Urine Culture - Final Complete 06/27/25 02:28 Blood Blood Culture - Preliminary NO GROWTH AFTER 72 HOURS OF INCUBATION. Resulted Problem List/Assessment/Plan Problem List/Assessment/Plan Assessment and plan # septic shock likely due to pyelonephritis # suspected acute pyelonephritis #Mild left hydroureteronephrosis # acute complicated UTI # bilateral nephrostomy tube in place -echo 2D done on 06/28/2025 non remarkable -continue IV fluid as prescribed -continue IV antibiotic meropenem -Urology consult-text message was was sent to Dr. Lisa, Urology -monitor CBC, CMP -pending blood culture, urine culture # failure to thrive -ordered dietary consult # history of cervical carcinoma stage IV -follow up with outpatient oncologist # anemia likely due to anemia chronic disease --ordered iron profile, ferritin -monitor CBC # suspected colitis/proctitis -continue IV antibiotic and IV fluid as prescribed # MIKO likely due to VMN -serum creatinine trending down -avoid dehydration and nephrotoxic drugs -continue IV fluid as prescribed -monitor CMP Goals of care, Code status ; discussed with >15 minutes PUD prophylaxis: Pantoprazole DVT prophylaxis: Lovenox Plan discussed with Dr. Gutierrez , nursing staff, Total time spent on patient evaluation, chart review, assessment and plan, discussion discussion >35 minutes Plan discussed with: Patient, Other (RN) Dietary Evaluation Review Recommendations by RD: Dietary education by RD, Protein Supplementation Comments: 1) Initiiate Ensure Enlive tid 2) Encourage optimal PO intake 3) Refer to outpatinet RD for weight management 4) Follow up with oncology and urology 5) Continue to monitor I&O, labs, and skin integrity Expected Outcomes/Goals: 1) appetite and labs to improve 2) gradual wt gain 3) f/u in 3-5 days Date of Service: Jun 30, 2025 Billing Provider: NONA SHEARER MD Common Visit Codes: [id number] CARE 30-74 MIN UVALDO GORDILLO RESIDENT Jun 30, 2025 13:36 NONA SHEARER MD Jul 06, 2025 23:43
[2025-06-30] MEDS: DOPamine 1600MCG/ML D5W 250 ML IV SCH (17:15)
[2025-07-01] VITALS (79 sets, daily range): BP systolic 80–119; BP diastolic 47–74; PULSE 44–66; RESP 10–24; TEMP 96.6–98.2; O2SAT 95–100
[2025-07-01] MEDS: VANCOMYCIN 500mg/100mL 100 ML IV SCH (01:07)
--- NOTE | 2025-07-01 08:00 | ECG ---
[facility] Test Date: 2025-06-27 Test Time: 18:23:38 Pat Name: PILY FITZGERALD Department: ED Room: 0263 A Gender: F Integration Developer: [email or web address] : [id number] Requested By: DUKE BARRAGAN Order Number: [id number] Reading MD: Ryan Morales Measurements Intervals [place] Rate: 56 P: 0 [place]: 0 QRS: 56 QRSD: 116 T: -45 QT: 420 QTc: 406 Interpretive Statements Junctional rhythm Nonspecific intraventricular conduction delay Borderline repolarization abnormality Baseline wander in lead(s) V1,V4,V5,V6 Electronically Signed On 07-03-2025 14:49:56 PDT by Ryan Morales Please click the below link to view image of tracing.
--- NOTE | 2025-07-01 09:25 | DVHPN2 ---
Consult Progress Note Date Seen: Jul 01, 2025 Subjective Review of Systems: CVS:Normal, RESPIRATORY:Normal, NEURO:Normal Objective vital signs Vital Sign Date Time Temp Pulse Resp B/P (MAP) Pulse Ox O2 Delivery O2 Flow Rate FiO2 07/01/25 06:30 49 15 99/59 (72) 96 07/01/25 06:00 Room Air* 0 21 07/01/25 05:00 96.6 96.6 Total Intake and Output 06/30/25 06/30/25 07/01/25 15:00 23:00 07:00 Intake Total 535.928 ml 863.828 ml 467.753 ml Output Total 1550 ml 650 ml Balance 535.928 ml -686.172 ml -182.247 ml medications Current Medications Medications Dose Ordered Sig/Santiago Route Start Time Stop Time Status Last Admin Dose Admin Acetaminophen 325 mg Q4HP PRN PO 06/27/25 05:00 Acetaminophen/ Hydrocodone Bitart 1 tab Q4HP PRN PO 06/27/25 05:00 06/30/25 22:58 1 TAB Ondansetron HCl 4 mg Q4HP PRN IV 06/27/25 05:00 06/28/25 17:00 4 MG Docusate Sodium 100 mg BIDPRN PRN PO 06/27/25 05:00 Morphine Sulfate 2 mg Q6HPRN PRN IV 06/27/25 05:30 Hold Pantoprazole Sodium 40 mg BID IV 06/27/25 22:00 06/30/25 22:10 40 MG Meropenem 50 ml @ 17 mls/hr Q8HR IV 06/27/25 14:00 07/01/25 06:09 17 MLS/HR Lactated Ringer's 1,000 ml @ 40 mls/hr Q24H IV 06/27/25 12:15 06/30/25 11:41 40 MLS/HR Norepinephrine Bitartrate 250 ml @ 3.75 mls/hr Q24H IV 06/27/25 16:30 06/30/25 09:50 3.75 MLS/HR Vancomycin HCl 0 ml @ 0 mls/hr UD IV 06/27/25 16:45 Midodrine 10 mg TID@0600,1200,1800 PO 06/27/25 17:15 06/29/25 16:59 10 MG Hydrocortisone Sodium Succinate 100 mg Q8HR IV 06/27/25 17:15 07/02/25 17:14 07/01/25 06:09 100 MG Prochlorperazine Edisylate 5 mg Q6HPRN PRN IV 06/28/25 16:00 Diphenhydramine HCl 50 mg Q4H PRN IV 06/28/25 18:00 07/01/25 04:01 50 MG Vancomycin HCl 100 ml @ 200 mls/hr Q16H IV 07/01/25 01:00 07/01/25 01:07 200 MLS/HR Dopamine HCl/ Dextrose 250 ml @ 3.075 mls/ hr Q24H IV 06/30/25 17:15 06/30/25 17:15 6.15 MLS/HR Examination: LUNGS:Normal, CVS:Normal, NEURO:Normal laboratory and microbiology Laboratory Tests 06/30/25 05:20 Test 06/30/25 05:20 Range/Units Serum Glucose 129 H 74-106 mg/dL Problem List/Assessment/Plan Problem List/Assessment/Plan (Dr. Morales) * Sinus Bradycardia, Junctional Rhythm - avoid AV michelle blockers. TSH normal. Likely multifactorial. Patient referred for possible ppm in the past though refused at that time. Patient endorses now as well does not want any type of procedure/intervention/ppm. The patient does not qualify for a PPM given optimal chronotropic response with activity. Continue conservative medical management. Currently on Dopamine at 2 mcg/kg/min. HR 40s bpm at rest, asymptomatic. Titrate off Dopamine as tolerated. TTE unremarkable, see report. * Hypotension, ?septic shock, suspected pyelonephritis - on IV antibiotics. Continue midodrine. Management per primary team. TTE unremarkable, see report. * Stage IV cervical cancer - management primary team, no further treatment sought per patient, recommend palliative/possible hospice eval. * MIKO - improving with IV fluid hydration. Continue monitoring. * Bilateral nephrostomy tube - urology/radiology consulted. Titrate off Dopamine drip. TTE unremarkable. Not a candidate for PPM given optimal chronotropic response. Signing off at this time. Kindly call with any questions or concerns. Thank you for allowing me to participate in the management of this patient. Critical care, time spent: 30 minutes. This medical document was created using an electronic medical record system with voice recognition software and computerized dictation system. Although this document has been carefully reviewed, there might still be some phonetic and typographical errors. Occasional wrong-word or ``sound-alike substitutions may have occurred due to the inherent limitations of voice recognition software. These areas are purely typographical due to imperfections of the software programs and do not reflect any compromise in the patient's medical care. Please read the chart carefully and recognize, using context, where these substitutions have occurred. Plan discussed with: Patient, Other Dietary Evaluation Review Recommendations by RD: Dietary education by RD, Protein Supplementation Comments: 1) Initiiate Ensure Enlive tid 2) Encourage optimal PO intake 3) Refer to outpatinet RD for weight management 4) Follow up with oncology and urology 5) Continue to monitor I&O, labs, and skin integrity Expected Outcomes/Goals: 1) appetite and labs to improve 2) gradual wt gain 3) f/u in 3-5 days Date of Service: Jul 01, 2025 Billing Provider: YUE LENZ Cardiology Common Codes: [id number] CARE 30-74 MIN YUE LENZ Jul 01, 2025 09:25
--- NOTE | 2025-07-01 09:43 | DVHPNRES ---
Progress Note Date Seen: Jul 01, 2025 Resident Creating Document: UVALDO GORDILLO RESIDENT Medical Necessity Reason Pt with a Central, PICC or Fol: Yes Subjective Review of Systems Patient is 44 years old female with a past medical history of cervical carcinoma stage IV, status post bilateral nephrostomy done 1 year before likely due to bilateral hydronephrosis came with a complaint of bilateral flank pain going for for few days, 10/10. Associated with nausea and low-grade fever at home 99 F. patient denied any diarrhea, constipation, acute joint redness or swelling or sick contact. Initial lab workup revealed hemoglobin 9.0, hematocrit 27.8. serum creatinine 1.39. Urinalysis revealed leukocyte esterase 3+, RBC 68, WBC 84. CT abdomen and pelvis revealed1. Bilateral percutaneous nephrostomy tubes appear appropriately positioned. Unusual elongated hypodense appearance of the cervix as reported on the comparison exam. Suspected left upper urinary tract infection. Wall thickening of the cecum, ascending colon, and rectum. Stranding around the rectum may be inflammatory. Correlate for symptoms of colitis/proctitis. PMH-status post cervical carcinoma, bilateral hydronephrosis, status post bilateral nephrostomy tube placement PSH- bilateral nephrostomy tube placement 1 year before at [facility], surgery for cervical carcinoma, Allergy- morphine, penicillin Personal History/ Social History- denies smoking/alcoholism/drug abuse Cardiovascular- deny acute chest pain or shortness of breath or cough or palpitation Respiratory denies cough or short of breath or wheezing Gastrointestinal- denies any rectal bleeding, nausea or vomiting Musculoskeletal-denies acute joint swelling or tenderness or redness Neurological- denies acute dysarthria, dysphagia, change in vision Psychiatry- denies depression or SI or HI Skin- denies acute rash or purpura Patient was seen today at bedside, labs and chart reviewed. WBC trending down. Hemoglobin stable. Spoke to Dr. Veras, urologist. Ordered IR consult for nephrostomy tube change. Patient on dopamine. Cardiology recommendation reviewed and appreciated. Objective vital signs Vital Sign Date Time Temp Pulse Resp B/P (MAP) Pulse Ox O2 Delivery O2 Flow Rate FiO2 07/01/25 06:30 49 15 99/59 (72) 96 07/01/25 06:00 Room Air* 0 21 07/01/25 05:00 96.6 96.6 Total Intake and Output 06/30/25 06/30/25 07/01/25 15:00 23:00 07:00 Intake Total 535.928 ml 863.828 ml 467.753 ml Output Total 1550 ml 650 ml Balance 535.928 ml -686.172 ml -182.247 ml medications Current Medications Medications Dose Ordered Sig/Santiago Route Start Time Stop Time Status Last Admin Dose Admin Acetaminophen 325 mg Q4HP PRN PO 06/27/25 05:00 Acetaminophen/ Hydrocodone Bitart 1 tab Q4HP PRN PO 06/27/25 05:00 06/30/25 22:58 1 TAB Ondansetron HCl 4 mg Q4HP PRN IV 06/27/25 05:00 06/28/25 17:00 4 MG Docusate Sodium 100 mg BIDPRN PRN PO 06/27/25 05:00 Morphine Sulfate 2 mg Q6HPRN PRN IV 06/27/25 05:30 Hold Pantoprazole Sodium 40 mg BID IV 06/27/25 22:00 06/30/25 22:10 40 MG Meropenem 50 ml @ 17 mls/hr Q8HR IV 06/27/25 14:00 07/01/25 06:09 17 MLS/HR Lactated Ringer's 1,000 ml @ 40 mls/hr Q24H IV 06/27/25 12:15 06/30/25 11:41 40 MLS/HR Norepinephrine Bitartrate 250 ml @ 3.75 mls/hr Q24H IV 06/27/25 16:30 06/30/25 09:50 3.75 MLS/HR Vancomycin HCl 0 ml @ 0 mls/hr UD IV 06/27/25 16:45 Midodrine 10 mg TID@0600,1200,1800 PO 06/27/25 17:15 06/29/25 16:59 10 MG Hydrocortisone Sodium Succinate 100 mg Q8HR IV 06/27/25 17:15 07/02/25 17:14 07/01/25 06:09 100 MG Prochlorperazine Edisylate 5 mg Q6HPRN PRN IV 06/28/25 16:00 Diphenhydramine HCl 50 mg Q4H PRN IV 06/28/25 18:00 07/01/25 04:01 50 MG Vancomycin HCl 100 ml @ 200 mls/hr Q16H IV 07/01/25 01:00 07/01/25 01:07 200 MLS/HR Dopamine HCl/ Dextrose 250 ml @ 3.075 mls/ hr Q24H IV 06/30/25 17:15 06/30/25 17:15 6.15 MLS/HR Examination General examination- awake, alert, oriented, cachexia, malnourished HEENT- PEERLA, no acute nasal discharge Cardiovascular- S1-S2 audible, rate and rhythm regular, no murmur Respiratory- CTAB, no wheeze or rhonchi Gastrointestinal-nontender, bowel sound+. Nondistended Musculoskeletal-no acute joint swelling or tenderness or redness Renal system-bilateral renal angle tenderness++, bilateral nephrostomy tube in place Lower extremity- bilateral muscle wasting Neurological- cranial nerves intact, no acute dysarthria or dysphagia Psychiatry- denies depression or SI or HI Skin- no acute rash or purpura laboratory and microbiology Laboratory Tests 06/30/25 05:20 Test 06/30/25 05:20 Range/Units Serum Glucose 129 H 74-106 mg/dL Microbiology Date/Time Source Procedure Growth Status 06/28/25 13:30 Stool Stool Culture - Final Complete 06/28/25 13:30 Stool Shiga Toxin I & II - Final Complete 06/28/25 13:30 Stool Clostridium difficile Toxin Assay - Final Complete 06/27/25 10:20 Voided Urine Urine Culture - Final Complete 06/27/25 02:28 Blood Blood Culture - Preliminary NO GROWTH AFTER 72 HOURS OF INCUBATION. Resulted Problem List/Assessment/Plan Problem List/Assessment/Plan Assessment and plan # septic shock likely due to pyelonephritis # suspected acute pyelonephritis #Mild left hydroureteronephrosis # acute complicated UTI # bilateral nephrostomy tube in place -ordered IR consult for change of nephrostomy tube as per urology recommendation/Dr. Veras recommended -echo 2D done on 06/28/2025 non remarkable -continue IV fluid as prescribed -continue IV antibiotic meropenem -urology consultation reviewed and appreciated -monitor CBC, CMP -pending blood culture, urine culture # failure to thrive -ordered dietary consult # history of cervical carcinoma stage IV -follow up with outpatient oncologist # anemia likely due to anemia chronic disease --ordered iron profile, ferritin -monitor CBC # suspected colitis/proctitis -continue IV antibiotic and IV fluid as prescribed # MIKO likely due to VMN -serum creatinine trending down -avoid dehydration and nephrotoxic drugs -continue IV fluid as prescribed -monitor CMP Goals of care, Code status ; discussed with >15 minutes PUD prophylaxis: Pantoprazole DVT prophylaxis: Lovenox Plan discussed with Dr. Gutierrez , nursing staff, Total time spent on patient evaluation, chart review, assessment and plan, discussion discussion >35 minutes Plan discussed with: Patient, Other (RN) My Orders My Orders Orders - UVALDO GORDILLO RESIDENT Procedure Category Date Status Time Complete Blood Count LAB 07/01/25 Logged 04:00 Comprehensive LAB 07/01/25 Logged Metabolic Panel 04:00 Magnesium LAB 07/01/25 Logged 04:00 Vancomycin 500mg/100ml PHA 07/01/25 In Process 01:00 Vancomycin,Trough LAB 07/02/25 Verified 08:00 Vancomycin Per MISTY 07/02/25 In Process Pharmacy Protoc 09:00 Mrsa Screen BERNICE 07/01/25 In Process 08:11 * Radiologist Consult CONS 07/01/25 Transmitted 08:21 Creatinine LAB 07/02/25 Verified 08:00 Dietary Evaluation Review Recommendations by RD: Dietary education by RD, Protein Supplementation Comments: 1) Initiiate Ensure Enlive tid 2) Encourage optimal PO intake 3) Refer to outpatinet RD for weight management 4) Follow up with oncology and urology 5) Continue to monitor I&O, labs, and skin integrity Expected Outcomes/Goals: 1) appetite and labs to improve 2) gradual wt gain 3) f/u in 3-5 days Date of Service: Jul 01, 2025 Billing Provider: NONA SHEARER MD Common Visit Codes: 76982-[id number] CARE 30-74 MIN UVALDO GORDILLO RESIDENT Jul 01, 2025 09:43 MARIA ELENA HALE RESIDENT Jul 01, 2025 19:32 NONA SHEARER MD Jul 06, 2025 23:59
[2025-07-01 10:05] LABS: Hemoglobin 8.3 g/dL (12.2-16.2)
[2025-07-01 10:07] LABS: Hematocrit 24.9 % (36.0-46.0); Mean Corpuscular Hemoglobin 31.5 pg (28.0-32.0); Mean Corpuscular Volume 95.2 fL (80.0-100.0); Nucleated Red Blood Cells % 0.1 %
--- NOTE | 2025-07-01 10:13 | DVHINCON2 ---
Date of service: Jul 01, 2025 Referring Physician Hospitalist Reason for Consultation bilateral nephrostomy tubes History of Present Illness History Source: Patient, RN Notes, MD Notes, Old Records Exam Limitations: No limitations HPI 44 yo female with hx of stage 4 cervical SCC with mets to the lungs. chronic bilateral nephrostomy tubes for management of bilateral hydronephrosis 2/2 distal ureteral obstruction from mass effect and radiation changes. She has recurrent complicated UTIs (ESBL E Coli). Intractable pain 2/2 cancer. methamphetamine user. Was receiving chemotherapy (Keytruda, Cisplatin) and radiation from [facility] last known treatment was 12/29/24. UCx grew mixed luciana. She was evaluated by cardiology for bradycardia, no pacemaker planned. She is in ICU on dopamine drip. She is comfortable with family at the bedside awaiting PCN exchange. Nephrostomy bags are purple bilaterally. Past Medical History Hemotology/Oncology: Anemia NOS, Cancer Infectious Disease: ESBL, MRSA Renal/: UTI Drugs: Amphetimines Review of Systems Constitutional: Malaise Genitourinary: Pain H&P Exam Vital Signs Vital Signs Date Time Temp Pulse Resp B/P (MAP) Pulse Ox O2 Delivery O2 Flow Rate FiO2 07/01/25 06:30 49 15 99/59 (72) 96 07/01/25 06:00 Room Air* 0 21 07/01/25 05:00 96.6 96.6 General Appeara: Well developed, Well nourished, Normal Appearance, Thin Pulmonary/Respiratory: Normal inspection, Normal breath sounds, Chest non- tender, Lungs clear Cardiovascular/Chest: Normal inspection, Regular rate, Normal Rhythm Rectal Exam: Deferred Back Exam: Normal inspection Neuro/Mental St: Alert, Oriented Appearance: Appropriate appearance, Appropriate insight Eye contact/ Speech: Cooperative, Good eye contact, Normal speech Skin Exam: Normal inspection, Normal color, Warm/dry Labs/Xrays [place] [id number] Ph: [phone] DIAGNOSTIC IMAGING Diagnostic Imaging Report : [id number] Signed PATIENT: PILY FITZGERALD ACCT: [id number] UNIT: [id number] : 1980 LOC: ER ROOM / BED: / AGE / SEX: 44 / F ADM STATUS: REG ER SERVICE [id number] ORDERING PHYSICIAN: GREG CASTILLO MD PROCEDURE(s): ABPLIV - CT AB PEL WITH IV CON ONLY REASON: abd pain stage 4 cerv cancer ORDER NUMBER(s): [id number], ACCESSION NUMBER(s): [id number] Exam: CT CT AB PEL WITH IV CON ONLY History: abd pain stage 4 cerv cancer Comparison Study: 02/17/2025 (report only available) Technique: Multidetector spiral CT of the abdomen was performed from lung bases to pubic symphysis. Imaging was performed without IV contrast. Axial, coronal and sagittal multiplanar reformats were obtained from the axial data set by the technologist. Radiation Dose : 1. Abdomen/Pelvis: CTDIvol 5.07 mGy, DLP 5.07 mGy*cm. Findings: Evaluation of solid organs is limited due to lack of intravenous contrast use. Lower Chest: No acute findings. Liver: Upper normal size. No focal lesion. Gallbladder and Biliary Tree: Unremarkable Pancreas: Unremarkable. Spleen: Unremarkable. Adrenal Glands: Unremarkable. Kidneys/Ureters: Bilateral percutaneous nephrostomy tubes appear appropriately positioned. Mild left hydroureteronephrosis with urothelial enhancement. Right perinephric stranding. Symmetric nephrograms. No urinary stone. Bladder: Decompressed, not well assessed. Pelvic Organs: Elongated hyperdense appearance of the cervix. No appreciable mass. Bilateral tubal occlusion clips. Bowel: Mild wall thickening of the cecum, ascending colon, and rectum. No other areas of evident inflammation. No obstruction. Small to moderate stool burden. Vasculature: Unremarkable. Lymphadenopathy: No obvious adenopathy. Peritoneum: No ascites, free air, or fluid collection. Soft tissue stranding surrounding the rectum. Abdominal Wall: Cachexia. Musculoskeletal: No acute findings. IMPRESSION: 1. Bilateral percutaneous nephrostomy tubes appear appropriately positioned. Suspected left upper urinary tract infection. 2. Unusual elongated hypodense appearance of the cervix as reported on the comparison exam. No discrete masses appreciated by CT, or specific findings of metastatic disease. 3. Wall thickening of the cecum, ascending colon, and rectum. Stranding around the rectum may be inflammatory. Correlate for symptoms of colitis/proctitis. Radiation optimization: All CT scans at this facility use at least one of these dose optimization techniques: automated exposure control mA and/or kV adjustment per patient size (includes targeted exams where dose is matched to clinical indication) or iterative reconstruction. ATED BY: LALI CANO MD DICTATED DATE/TIME: 06/27/25415 SIGNED BY: LALI CANO MD SIGNED DATE/TIME: 06/27/25415 CC: Labs Test 07/01/25 09:44 06/30/25 05:20 06/29/25 19:47 06/29/25 07:55 Range/Units Differential Total Cells Counted 100.0 100 Neutrophils % (Manual) 93 H 37.0-80.0 Band Neutrophils % (Manual) 0 Lymphocytes % (Manual) 4 L 10.0-50.0 Monocytes % (Manual) 3 0-12 Eosinophils % (Manual) 0 0-7 Basophils % (Manual) 0 0.0-2.0 Metamyelocytes % (manual) 0 Myelocytes % (Manual) 0 Promyelocytes % (Manual) 0 Blast Cells % (Manual) 0 Reactive Lymphocytes 0 Platelet Estimate Increased Vancomycin Level Trough 18.9 H 5-10 ug/mL Eosinophils (%) (Auto) 0.0 0.0-7.0 % Eosinophils # (Auto) 0 0-0.8 10 ^3/uL Basophils # (Auto) 0 0-0.2 10 ^3/uL Nucleated Red Blood Cells 0.0 % Test 06/28/25 13:30 06/28/25 04:08 06/27/25 12:04 06/27/25 10:20 Range/Units Stool for White Cells None seen Smudge Cells 1 /100 WBC Iron Level 21 L 50-170 ug/dL Total Iron Binding Capacity 193 L 250-425 ug/dL Percent Iron Saturation 10.9 L 15-50 % Ferritin 695.8 H 10-291 ng/mL Random Vancomycin Level 14.5 H 5-10 ug/mL Erythrocyte Sedimentation Rate 75 H 0-20 mm/hr Urine Color Colorless Yellow Urine Clarity Turbid H Clear Urine pH 8.0 5.0-9.0 Urine Specific Kinde 1.036 H 1.001-1.035 Urine Protein Trace H Negative Urine Ketones Negative Negative Urine Blood 2+ H Negative /uL Urine Nitrite Negative Negative Urine Bilirubin Negative Negative Urine Urobilinogen Normal Negative mg/dL Urine Leukocyte Esterase 3+ Negative /uL Urine RBC 68 0 - 4 /hpf Urine Microscopic WBC 84 H 0-5 /HPF Urine Squamous Epithelial Cells Few <5 /hpf Urine Triple Phosphate Crystals Few None Seen /hpf Urine Bacteria None seen None Seen /hpf Urine Mucus Few None Seen Urine Glucose Normal Normal mg/dL Urine Opiates Screen Neg NEGATIVE Urine Fentanyl Screen Neg NEGATIVE Urine Barbiturates Screen Neg NEGATIVE Urine Phencyclidine Screen Neg NEGATIVE Urine Amphetamines Screen Pos NEGATIVE Urine Benzodiazepines Screen Neg NEGATIVE Urine Cocaine Screen Neg NEGATIVE Urine Cannabinoids Screen Neg NEGATIVE Test 06/27/25 07:34 06/27/25 02:28 Range/Units Prothrombin Time 11.0 9.3-11.8 sec Prothrombin Time INR 1.04 0.9-1.15 Activated Partial Thromboplast Time 34.4 24.5-34.5 SEC Hemoglobin A1c < 3.8 <5.7 % A1C Lactic Acid Level 1.6 0.4-2.0 mmol/L Troponin I High Sensitivity < 3 L </=34 ng/L C-Reactive Protein High Sensitivity 11.93 H <1.0 mg/dL Thyroid Stimulating Hormone (TSH) 1.53 0.55-4.78 uIU/mL Microbiology Date/Time Source Procedure Growth Status 06/28/25 13:30 Stool Stool Culture - Final Complete 06/28/25 13:30 Stool Shiga Toxin I & II - Final Complete 06/28/25 13:30 Stool Clostridium difficile Toxin Assay - Final Complete 06/27/25 10:20 Voided Urine Urine Culture - Final Complete 06/27/25 02:28 Blood Blood Culture - Preliminary NO GROWTH AFTER 72 HOURS OF INCUBATION. Resulted Assessment/Plan Problem List: (1) Pyelonephritis (2) Acute renal injury (3) Complication of urostomy (4) Metastasis from cervical cancer (5) Purple urine bag syndrome (6) Foreign body in genitourinary tract, part unspecified, initial encounter Plan continue with bilateral PCN placement - exchange 8-12 weeks routinely treat UTI, culture directed abx pt to follow up with oncology and palliative care Plan discussed with: Patient, Other ABDI GERARDO NP Jul 01, 2025 10:13
[2025-07-01 10:19] LABS: Alanine Aminotransferase 21 U/L (7-40); Alkaline Phosphatase 102 U/L (46-116); Anion Gap 7 (5-15); BUN/Creatinine Ratio 13.7 (10.0-20.0); Blood Urea Nitrogen 13 mg/dL (9-23); Chloride 102 mmol/L (98-107); Magnesium 1.8 mg/dL (1.6-2.6); Sodium 142 mmol/L (136-145); Total Protein 5.7 g/dL (5.7-8.2)
[2025-07-01 10:34] LABS: Albumin 3.0 g/dL (3.2-4.8); Bilirubin, Total < 0.2 mg/dL (0.2-1.0); Calcium 8.3 mg/dL (8.7-10.4); Carbon Dioxide 33 mmol/L (20-31); Glucose 109 mg/dL (74-106); Potassium 3.0 mmol/L (3.5-5.1)
[2025-07-01] MEDS: POTASSIUM CHL 20MEQ/100ML 100 ML IV SCH (12:39)
[2025-07-01] MEDS: MUPIROCIN 2% OINT 15gm or 22gm FOR MRSA NARES EACHNOSTRI SCH (18:07)
[2025-07-02] VITALS (94 sets, daily range): BP systolic 72–149; BP diastolic 43–93; PULSE 37–70; RESP 10–28; TEMP 97.5–98.4; O2SAT 94–100
[2025-07-02 05:16] LABS: Hemoglobin 7.9 g/dL (12.2-16.2); Nucleated Red Blood Cells % 0.1 %
[2025-07-02 05:19] LABS: Hematocrit 23.9 % (36.0-46.0); Mean Corpuscular Hemoglobin 31.8 pg (28.0-32.0); Mean Corpuscular Volume 95.7 fL (80.0-100.0)
[2025-07-02 05:31] LABS: Alanine Aminotransferase 27 U/L (7-40); Alkaline Phosphatase 106 U/L (46-116); Anion Gap 7 (5-15); BUN/Creatinine Ratio 15.8 (10.0-20.0); Blood Urea Nitrogen 15 mg/dL (9-23); Chloride 104 mmol/L (98-107); Magnesium 1.9 mg/dL (1.6-2.6); Sodium 143 mmol/L (136-145)
[2025-07-02 05:39] LABS: Albumin 2.8 g/dL (3.2-4.8); Bilirubin, Total < 0.2 mg/dL (0.2-1.0); Calcium 7.9 mg/dL (8.7-10.4); Carbon Dioxide 32 mmol/L (20-31); Glucose 125 mg/dL (74-106); Potassium 3.0 mmol/L (3.5-5.1); Total Protein 5.1 g/dL (5.7-8.2)
[2025-07-02 05:40] LABS: INR 0.97 (0.9-1.15); Partial Thromboplastin Time 26.2 SEC (24.5-34.5); Prothrombin Time 10.3 sec (9.3-11.8)
[2025-07-02] MEDS: MAGNESIUM SULFATE 1GM/100ML 100 ML IV ONE (06:27)
[2025-07-02] MEDS: IODIXANOL 320MG/ML 100ML BTL IV ONE (08:13)
[2025-07-02] MEDS: POTASSIUM CHLORIDE 40 MEQ, LIDOCAINE 1% (LOCAL ANESTH.) 4 ML in SODIUM CHL 0.9% 250 ML IV ONE (08:20)
[2025-07-02] MEDS: LIDOCAINE 2%HCL (LOCAL ANESTH.) INJ 20ML MDV ONE (08:31)
[2025-07-02] MEDS: fentaNYL CITRATE 100 MCG/2 ML VL ONE (08:31)
[2025-07-02] MEDS: MIDAZOLAM HCL 2MG/2ML 2ml VIAL (1mg/ml) ONE (08:31)
--- NOTE | 2025-07-02 09:47 | DVH ---
XY CHANGE PERC. DRAIN W CONTRAST, HISTORY: Nephrostomy tube exchange , last exchange in February. PROCEDURE: Informed consent was obtained. The patient was placed on the fluoroscopic table in a prone position and IV sedation administered. The bilateral flank was prepped with chlorhexidine which was allowed to dry and draped in the usual sterile fashion. Time out was performed and the soft tissues i nfiltrated with 1% lidocaine local anesthetic. An antegrade nephrostogram was performed to confirm po sition of the previous nephrostomy tube. The tube was cut and a glidewire was inserted through the n ephrostomy tube into the ureter. The prior nephrostomy tube was removed, and a new 8.5 Fr multipurpos e drainage catheter was advanced into the renal pelvis over a wire. Completion antegrade nephrostogra m demonstrates appropriate position of the new bilateral nephrostomy tube in the renal pelvis. The ca theter was secured in place and connected to gravity drainage. A sterile dressing was applied. No imm ediate complication was identified. DAP 57.39 FLUOROSCOPY TIME: 3.4 minutes. CONTRAST USED: 20 mL . SEDATION: Dr. Дмитрий Pike was personally responsible for the administration of moderate sedation during the procedure performed, including the use of an independent trained observer who had no other duties during the procedure. The drugs utilized were IV fentanyl and versed (see nursing log for details). The total time of supervision by the attending physician was approximately 40 minutes. FINDINGS: Bilateral nephrostomy tube within pigtail coiled in the left and right renal pelvis. IMPRESSION: Successful exchange of a right and left sided nephrostomy tubes, with placement of a new 8.5 fr multi purpose drainage catheter in the right and left renal pelvis. PLAN: Routine catheter exchanges in 3 months.
--- NOTE | 2025-07-02 14:38 | DVHPNRES ---
Progress Note Date Seen: Jul 02, 2025 Resident Creating Document: UVALDO GORDILLO RESIDENT Medical Necessity Reason Pt with a Central, PICC or Fol: Yes Subjective Review of Systems Patient is 44 years old female with a past medical history of cervical carcinoma stage IV, status post bilateral nephrostomy done 1 year before likely due to bilateral hydronephrosis came with a complaint of bilateral flank pain going for for few days, 08/08. Associated with nausea and low-grade fever at home 99 F. patient denied any diarrhea, constipation, acute joint redness or swelling or sick contact. Initial lab workup revealed hemoglobin 9.0, hematocrit 27.8. serum creatinine 1.39. Urinalysis revealed leukocyte esterase 3+, RBC 68, WBC 84. CT abdomen and pelvis revealed1. Bilateral percutaneous nephrostomy tubes appear appropriately positioned. Unusual elongated hypodense appearance of the cervix as reported on the comparison exam. Suspected left upper urinary tract infection. Wall thickening of the cecum, ascending colon, and rectum. Stranding around the rectum may be inflammatory. Correlate for symptoms of colitis/proctitis. PMH-status post cervical carcinoma, bilateral hydronephrosis, status post bilateral nephrostomy tube placement PSH- bilateral nephrostomy tube placement 1 year before at [facility], surgery for cervical carcinoma, Allergy- morphine, penicillin Personal History/ Social History- denies smoking/alcoholism/drug abuse Cardiovascular- deny acute chest pain or shortness of breath or cough or palpitation Respiratory denies cough or short of breath or wheezing Gastrointestinal- denies any rectal bleeding, nausea or vomiting Musculoskeletal-denies acute joint swelling or tenderness or redness Neurological- denies acute dysarthria, dysphagia, change in vision Psychiatry- denies depression or SI or HI Skin- denies acute rash or purpura Patient was seen today at bedside, labs and chart reviewed. Patient had nephrostomy tube change today. Status post procedure patient's blood pressure dropped to 70s. Patient was restarted on Levophed. Patient has nephrostomy bag with a clear urine draining. Objective vital signs Vital Sign Date Time Temp Pulse Resp B/P (MAP) Pulse Ox O2 Delivery O2 Flow Rate FiO2 07/02/25 12:30 142/85 07/02/25 06:30 39 16 100 07/02/25 06:00 Room Air* 0 21 07/02/25 04:15 97.5 97.5 Total Intake and Output 07/01/25 07/01/25 07/02/25 15:00 23:00 07:00 Intake Total 386.378 ml 1157.076 ml 697 ml Output Total 950 ml 500 ml Balance 386.378 ml 207.076 ml 197 ml medications Current Medications Medications Dose Ordered Sig/Santiago Route Start Time Stop Time Status Last Admin Dose Admin Acetaminophen 325 mg Q4HP PRN PO 06/27/25 05:00 Acetaminophen/ Hydrocodone Bitart 1 tab Q4HP PRN PO 06/27/25 05:00 06/30/25 22:58 1 TAB Ondansetron HCl 4 mg Q4HP PRN IV 06/27/25 05:00 06/28/25 17:00 4 MG Docusate Sodium 100 mg BIDPRN PRN PO 06/27/25 05:00 Morphine Sulfate 2 mg Q6HPRN PRN IV 06/27/25 05:30 Hold Pantoprazole Sodium 40 mg BID IV 06/27/25 22:00 07/02/25 10:40 40 MG Meropenem 50 ml @ 17 mls/hr Q8HR IV 06/27/25 14:00 07/02/25 06:00 17 MLS/HR Lactated Ringer's 1,000 ml @ 40 mls/hr Q24H IV 06/27/25 12:15 07/02/25 09:30 40 MLS/HR Norepinephrine Bitartrate 250 ml @ 3.75 mls/hr Q24H IV 06/27/25 16:30 07/02/25 10:29 3.75 MLS/HR Vancomycin HCl 0 ml @ 0 mls/hr UD IV 06/27/25 16:45 Midodrine 10 mg TID@0600,1200,1800 PO 06/27/25 17:15 07/02/25 12:44 10 MG Prochlorperazine Edisylate 5 mg Q6HPRN PRN IV 06/28/25 16:00 Diphenhydramine HCl 50 mg Q4H PRN IV 06/28/25 18:00 07/02/25 12:48 50 MG Vancomycin HCl 100 ml @ 200 mls/hr Q16H IV 07/01/25 01:00 07/02/25 10:44 200 MLS/HR Dopamine HCl/ Dextrose 250 ml @ 3.075 mls/ hr Q24H IV 06/30/25 17:15 06/30/25 17:15 6.15 MLS/HR Mupirocin 1 applic BID EACHNOSTRI 07/01/25 15:45 07/06/25 15:44 07/02/25 10:41 1 APPLIC Examination General examination- awake, alert, oriented, cachexia, malnourished HEENT- PEERLA, no acute nasal discharge Cardiovascular- S1-S2 audible, rate and rhythm regular, no murmur Respiratory- CTAB, no wheeze or rhonchi Gastrointestinal-nontender, bowel sound+. Nondistended Musculoskeletal-no acute joint swelling or tenderness or redness Renal system-bilateral renal angle tenderness++, bilateral nephrostomy tube in place Lower extremity- bilateral muscle wasting Neurological- cranial nerves intact, no acute dysarthria or dysphagia Psychiatry- denies depression or SI or HI Skin- no acute rash or purpura laboratory and microbiology Laboratory Tests 07/02/25 04:50 Test 07/02/25 04:50 Range/Units Serum Glucose 125 H 74-106 mg/dL Microbiology Date/Time Source Procedure Growth Status 07/01/25 04:48 Nose MRSA Screen - Final Methicillin Resistant S.aureus Complete 06/28/25 13:30 Stool Stool Culture - Final Complete 06/28/25 13:30 Stool Shiga Toxin I & II - Final Complete 06/28/25 13:30 Stool Clostridium difficile Toxin Assay - Final Complete 06/27/25 10:20 Voided Urine Urine Culture - Final Complete 06/27/25 02:28 Blood Blood Culture - Final NO GROWTH AFTER 5 DAYS OF INCUBATION. Complete Problem List/Assessment/Plan Problem List/Assessment/Plan Assessment and plan # Septic shock likely due to pyelonephritis # Suspected acute pyelonephritis #Mild left hydroureteronephrosis # acute complicated UTI # bilateral nephrostomy tube in place -status post nephrostomy tube replacement today -echo 2D done on 06/28/2025 non remarkable -continue Levophed -continue IV fluid as prescribed -continue IV antibiotic meropenem -urology consultation reviewed and appreciated -monitor CBC, CMP -urine culture contaminated sample. Blood culture negative. -patient on Levophed # failure to thrive -ordered dietary consult # hypokalemia. Replenished -monitor CMP # history of cervical carcinoma stage IV -follow up with outpatient oncologist # anemia likely due to anemia chronic disease --ordered iron profile, ferritin -monitor CBC # suspected colitis/proctitis -continue IV antibiotic and IV fluid as prescribed # MIKO likely due to VMN -serum creatinine trending down -avoid dehydration and nephrotoxic drugs -continue IV fluid as prescribed -monitor CMP Goals of care, Code status ; discussed with >15 minutes PUD prophylaxis: Pantoprazole DVT prophylaxis: Lovenox Plan discussed with Dr. Gutierrez , nursing staff, Total time spent on patient evaluation, chart review, assessment and plan, discussion discussion >35 minutes Plan discussed with: Patient, Other (RN) My Orders My Orders Orders - UVALDO GORDILLO Procedure Category Date Status Time Mupirocin 2% Oint PHA 07/01/25 In Process Mrsa Nares (Bactroban 15:45 Vancomycin,Trough LAB 07/04/25 Verified 08:00 Creatinine LAB 07/03/25 Verified 04:00 Vancomycin Per MISTY 07/03/25 In Process Pharmacy Protoc 01:00 Dietary Evaluation Review Recommendations by RD: Dietary education by RD, Protein Supplementation Comments: 1) Initiiate Ensure Enlive tid 2) Encourage optimal PO intake 3) Refer to outpatinet RD for weight management 4) Follow up with oncology and urology 5) Continue to monitor I&O, labs, and skin integrity Expected Outcomes/Goals: 1) appetite and labs to improve 2) gradual wt gain 3) f/u in 3-5 days Date of Service: Jul 02, 2025 Billing Provider: NONA SHEARER MD Common Visit Codes: 31024-[id number] CARE 30-74 MIN UVALDO GORDILLO Jul 02, 2025 14:38 NONA SHEARER MD Jul 07, 2025 00:48
[2025-07-02] MEDS: NOREPINEPHRINE 8 MG/250ML KIT 250 ML IV SCH (19:15)
[2025-07-02] MEDS: SODIUM CHL 0.9% IV SCH (21:01)
[2025-07-02] MEDS: AMPICILLIN IV SCH (21:01)
[2025-07-02] MEDS: SULBACTAM SODIUM IV SCH (21:01)
[2025-07-03] VITALS (87 sets, daily range): BP systolic 69–159; BP diastolic 36–92; PULSE 43–130; RESP 10–32; TEMP 98–98.7; O2SAT 83–100
[2025-07-03 05:53] LABS: Hematocrit 24.4 % (36.0-46.0); Hemoglobin 8.0 g/dL (12.2-16.2); Mean Corpuscular Hemoglobin 31.8 pg (28.0-32.0); Mean Corpuscular Volume 96.8 fL (80.0-100.0); Nucleated Red Blood Cells % 0.1 %
[2025-07-03 06:01] LABS: Alanine Aminotransferase 26 U/L (7-40); Alkaline Phosphatase 94 U/L (46-116); Anion Gap 6 (5-15); BUN/Creatinine Ratio 13.3 (10.0-20.0); Blood Urea Nitrogen 18 mg/dL (9-23); Chloride 105 mmol/L (98-107); Glucose 80 mg/dL (74-106); Magnesium 2.0 mg/dL (1.6-2.6); Sodium 143 mmol/L (136-145)
[2025-07-03 06:09] LABS: Albumin 2.5 g/dL (3.2-4.8); Bilirubin, Total < 0.2 mg/dL (0.2-1.0); Calcium 7.5 mg/dL (8.7-10.4); Carbon Dioxide 32 mmol/L (20-31); Potassium 2.8 mmol/L (3.5-5.1); Total Protein 4.6 g/dL (5.7-8.2)
[2025-07-03] MEDS: MAGNESIUM SULFATE 1GM/100ML 100 ML IV ONE (07:03)
[2025-07-03] MEDS: POTASSIUM CHL 20MEQ/100ML 100 ML IV SCH (07:03)
--- NOTE | 2025-07-03 12:54 | DVHDSRES ---
Discharge Summary Date of Admission Resident Creating Document: UVALDO GORDILLO RESIDENT Jun 27, 2025 at 04:47 Date of Discharge: Jul 03, 2025 Admitting Diagnosis Septic shock likely due to pyelonephritis Labs/Diagnostic Data: Laboratory Results Test 07/03/25 04:44 07/02/25 08:23 07/02/25 04:50 06/30/25 05:20 White Blood Count 8.2 10^3/uL (4.4-10.8) Red Blood Count 2.52 10^6/uL (4.0-5.20) Hemoglobin 8.0 g/dL (12.2-16.2) Hematocrit 24.4 % (36.0-46.0) Mean Corpuscular Volume 96.8 fL (80.0-100.0) Mean Corpuscular Hemoglobin 31.8 pg (28.0-32.0) Mean Corpuscular Hemoglobin Concent 32.9 g/dL (32.0-36.0) Red Cell Distribution Width 15.0 % (11.8-14.3) Platelet Count 348 10^3/uL (140-450) Mean Platelet Volume 7.2 fL (6.9-10.8) Neutrophils (%) (Auto) 87.9 % (37.0-80.0) Lymphocytes (%) (Auto) 8.4 % (10.0-50.0) Monocytes (%) (Auto) 3.2 % (0.0-12.0) Eosinophils (%) (Auto) 0.4 % (0.0-7.0) Basophils (%) (Auto) 0.1 % (0.0-2.0) Neutrophils # (Auto) 7.2 10 ^3/uL (1.6-8.6) Lymphocytes # (Auto) 0.7 10 ^3/uL (0.4-5.4) Monocytes # (Auto) 0.3 10 ^3/uL (0-1.3) Eosinophils # (Auto) 0 10 ^3/uL (0-0.8) Basophils # (Auto) 0 10 ^3/uL (0-0.2) Nucleated Red Blood Cells 0.1 % Sodium Level 143 mmol/L (136-145) Potassium Level 2.8 mmol/L (3.5-5.1) Chloride Level 105 mmol/L (98-107) Carbon Dioxide Level 32 mmol/L (20-31) Anion Gap 6 (5-15) Blood Urea Nitrogen 18 mg/dL (9-23) Creatinine 1.35 mg/dL (0.550-1.02) Glomerular Filtration Rate Calc 50 mL/min (>90) BUN/Creatinine Ratio 13.3 (10.0-20.0) Serum Glucose 80 mg/dL (74-106) Calcium Level 7.5 mg/dL (8.7-10.4) Magnesium Level 2.0 mg/dL (1.6-2.6) Total Bilirubin < 0.2 mg/dL (0.2-1.0) Aspartate Amino Transferase (AST) 24 U/L (13-40) Alanine Aminotransferase (ALT) 26 U/L (7-40) Alkaline Phosphatase 94 U/L (46-116) Total Protein 4.6 g/dL (5.7-8.2) Albumin 2.5 g/dL (3.2-4.8) Vancomycin Level Trough 12.7 ug/mL (5-10) Prothrombin Time 10.3 sec (9.3-11.8) Prothrombin Time INR 0.97 (0.9-1.15) Activated Partial Thromboplast Time 26.2 SEC (24.5-34.5) Differential Total Cells Counted 100.0 (100) Neutrophils % (Manual) 93 (37.0-80.0) Band Neutrophils % (Manual) 0 Lymphocytes % (Manual) 4 (10.0-50.0) Monocytes % (Manual) 3 (0-12) Eosinophils % (Manual) 0 (0-7) Basophils % (Manual) 0 (0.0-2.0) Metamyelocytes % (manual) 0 Myelocytes % (Manual) 0 Promyelocytes % (Manual) 0 Blast Cells % (Manual) 0 Reactive Lymphocytes 0 Platelet Estimate Increased Test 06/28/25 13:30 06/28/25 04:08 06/27/25 12:04 06/27/25 10:20 Stool for White Cells None seen Smudge Cells /100 WBC Iron Level 21 ug/dL (50-170) Total Iron Binding Capacity 193 ug/dL (250-425) Percent Iron Saturation 10.9 % (15-50) Ferritin 695.8 ng/mL (10-291) Random Vancomycin Level 14.5 ug/mL (5-10) Erythrocyte Sedimentation Rate 75 mm/hr (0-20) Urine Color Colorless (Yellow) Urine Clarity Turbid (Clear) Urine pH 8.0 (5.0-9.0) Urine Specific Morrison 1.036 (1.001-1.035) Urine Protein Trace (Negative) Urine Ketones Negative (Negative) Urine Blood 2+ /uL (Negative) Urine Nitrite Negative (Negative) Urine Bilirubin Negative (Negative) Urine Urobilinogen Normal mg/dL (Negative) Urine Leukocyte Esterase 3+ /uL (Negative) Urine RBC 68 /hpf (0 - 4) Urine Microscopic WBC 84 /HPF (0-5) Urine Squamous Epithelial Cells Few /hpf (<5) Urine Triple Phosphate Crystals Few /hpf (None Seen) Urine Bacteria None seen /hpf (None Seen) Urine Mucus Few (None Seen) Urine Glucose Normal mg/dL (Normal) Urine Opiates Screen Neg (NEGATIVE) Urine Fentanyl Screen Neg (NEGATIVE) Urine Barbiturates Screen Neg (NEGATIVE) Urine Phencyclidine Screen Neg (NEGATIVE) Urine Amphetamines Screen Pos (NEGATIVE) Urine Benzodiazepines Screen Neg (NEGATIVE) Urine Cocaine Screen Neg (NEGATIVE) Urine Cannabinoids Screen Neg (NEGATIVE) Test 06/27/25 02:28 Hemoglobin A1c < 3.8 % A1C (<5.7) Lactic Acid Level 1.6 mmol/L (0.4-2.0) Troponin I High Sensitivity < 3 ng/L (</=34) C-Reactive Protein High Sensitivity 11.93 mg/dL (<1.0) Thyroid Stimulating Hormone (TSH) 1.53 uIU/mL (0.55-4.78) Other Laboratory Tests 07/03/25 04:44 Brief Hx & Hospital Course: Patient is 44 years old female with a past medical history of cervical carcinoma stage IV, status post bilateral nephrostomy done 1 year before likely due to bilateral hydronephrosis came with a complaint of bilateral flank pain going for for few days, 08/08. Associated with nausea and low-grade fever at home 99 F. patient denied any diarrhea, constipation, acute joint redness or swelling or sick contact. Initial lab workup revealed hemoglobin 9.0, hematocrit 27.8. serum creatinine 1.39. Urinalysis revealed leukocyte esterase 3+, RBC 68, WBC 84. CT abdomen and pelvis revealed1. Bilateral percutaneous nephrostomy tubes appear appropriately positioned. Unusual elongated hypodense appearance of the cervix as reported on the comparison exam. Suspected left upper urinary tract infection. Wall thickening of the cecum, ascending colon, and rectum. Stranding around the rectum may be inflammatory. Correlate for symptoms of colitis/proctitis. Assessment # Septic shock likely due to pyelonephritis # Suspected acute pyelonephritis #Mild left hydroureteronephrosis # acute complicated UTI # bilateral nephrostomy tube in place, status post nephrostomy tube change # failure to thrive # hypokalemia. Replenished # history of cervical carcinoma stage IV # anemia likely due to anemia chronic disease # suspected colitis/proctitis # MIKO likely due to VMN Condition at Discharge: Stable Final Diagnosis/Problems List # Septic shock likely due to pyelonephritis # Suspected acute pyelonephritis #Mild left hydroureteronephrosis # acute complicated UTI # bilateral nephrostomy tube in place, status post nephrostomy tube change # failure to thrive # hypokalemia. Replenished # history of cervical carcinoma stage IV # anemia likely due to anemia chronic disease # suspected colitis/proctitis # MIKO likely due to VMN Discharge Disposition: Home Discharge Statement: "Patient was advised to return to the ER or call 911 if any headaches, dizziness, shortness of breath, chest pain, abdominal pain, bleeding, fevers, or worsening of medical condition. Patient was counseled about treatment plan, medications, possible side effects, patientverbalized understanding. All questions were answered to the best of my ability. This discharge took greater then 30 minutes in planning, reviewing documentation, counseling the patient, and discussing with other team members." ASSESSMENT ASSESSMENT Assessment UVALDO GORDILLO RESIDENT Jul 03, 2025 12:53
--- NOTE | 2025-07-03 17:38 | DVHPNRES ---
Progress Note Date Seen: Jul 03, 2025 Resident Creating Document: UVALDO GORDILLO RESIDENT Medical Necessity Reason Pt with a Central, PICC or Fol: Yes Subjective Review of Systems Patient is 44 years old female with a past medical history of cervical carcinoma stage IV, status post bilateral nephrostomy done 1 year before likely due to bilateral hydronephrosis came with a complaint of bilateral flank pain going for for few days, /. Associated with nausea and low-grade fever at home 99 F. patient denied any diarrhea, constipation, acute joint redness or swelling or sick contact. Initial lab workup revealed hemoglobin 9.0, hematocrit 27.8. serum creatinine 1.39. Urinalysis revealed leukocyte esterase 3+, RBC 68, WBC 84. CT abdomen and pelvis revealed1. Bilateral percutaneous nephrostomy tubes appear appropriately positioned. Unusual elongated hypodense appearance of the cervix as reported on the comparison exam. Suspected left upper urinary tract infection. Wall thickening of the cecum, ascending colon, and rectum. Stranding around the rectum may be inflammatory. Correlate for symptoms of colitis/proctitis. PMH-status post cervical carcinoma, bilateral hydronephrosis, status post bilateral nephrostomy tube placement PSH- bilateral nephrostomy tube placement 1 year before at [facility], surgery for cervical carcinoma, Allergy- morphine, penicillin Personal History/ Social History- denies smoking/alcoholism/drug abuse Cardiovascular- deny acute chest pain or shortness of breath or cough or palpitation Respiratory denies cough or short of breath or wheezing Gastrointestinal- denies any rectal bleeding, nausea or vomiting Musculoskeletal-denies acute joint swelling or tenderness or redness Neurological- denies acute dysarthria, dysphagia, change in vision Psychiatry- denies depression or SI or HI Skin- denies acute rash or purpura Patient was seen today at bedside, labs and chart reviewed. Patient was taken off vasopressor but patient's blood pressure dropped down to 69, patient was put back on Levophed. Patient also had physical therapy. Ambulate up to 30 ft, patient became dizzy following that. As per nursing staff patient had itchiness and swelling and some redness around the lives after Unasyn. Unasyn was discontinued. Restarted meropenem. Objective vital signs Vital Sign Date Time Temp Pulse Resp B/P (MAP) Pulse Ox O2 Delivery O2 Flow Rate FiO2 07/03/25 17:11 141/78 07/03/25 12:00 19 98 Room Air* 0 21 07/03/25 10:45 108 07/03/25 08:00 98.0 98.0 Total Intake and Output 07/02/25 07/02/25 07/03/25 15:00 23:00 07:00 Intake Total 473.987 ml 1271.137 ml 941.875 ml Output Total 0 ml 450 ml 875 ml Balance 473.987 ml 821.137 ml 66.875 ml medications Current Medications Medications Dose Ordered Sig/Santiago Route Start Time Stop Time Status Last Admin Dose Admin Acetaminophen 325 mg Q4HP PRN PO 06/27/25 05:00 Acetaminophen/ Hydrocodone Bitart 1 tab Q4HP PRN PO 06/27/25 05:00 06/30/25 22:58 1 TAB Ondansetron HCl 4 mg Q4HP PRN IV 06/27/25 05:00 06/28/25 17:00 4 MG Docusate Sodium 100 mg BIDPRN PRN PO 06/27/25 05:00 Morphine Sulfate 2 mg Q6HPRN PRN IV 06/27/25 05:30 Hold Pantoprazole Sodium 40 mg BID IV 06/27/25 22:00 07/03/25 10:29 40 MG Lactated Ringer's 1,000 ml @ 40 mls/hr Q24H IV 06/27/25 12:15 07/03/25 14:33 40 MLS/HR Vancomycin HCl 0 ml @ 0 mls/hr UD IV 06/27/25 16:45 Midodrine 10 mg TID@0600,1200,1800 PO 06/27/25 17:15 07/03/25 14:35 10 MG Prochlorperazine Edisylate 5 mg Q6HPRN PRN IV 06/28/25 16:00 Diphenhydramine HCl 50 mg Q4H PRN IV 06/28/25 18:00 07/03/25 10:47 50 MG Dopamine HCl/ Dextrose 250 ml @ 3.075 mls/ hr Q24H IV 06/30/25 17:15 06/30/25 17:15 6.15 MLS/HR Mupirocin 1 applic BID EACHNOSTRI 07/01/25 15:45 07/06/25 15:44 07/03/25 10:30 1 APPLIC Ampicillin Sodium/ Sulbactam Sodium 1 gm/Sodium Chloride 100 ml @ 100 mls/hr Q8H IV 07/02/25 19:15 07/02/25 21:01 100 MLS/HR Norepinephrine Bitartrate 250 ml @ 3.75 mls/hr Q24H IV 07/02/25 19:15 Meropenem 50 ml @ 17 mls/hr Q12HR IV 07/03/25 22:00 laboratory and microbiology Laboratory Tests 07/03/25 04:44 Test 07/03/25 04:44 Range/Units Serum Glucose 80 74-106 mg/dL Microbiology Date/Time Source Procedure Growth Status 07/01/25 04:48 Nose MRSA Screen - Final Methicillin Resistant S.aureus Complete 06/28/25 13:30 Stool Stool Culture - Final Complete 06/28/25 13:30 Stool Shiga Toxin I & II - Final Complete 06/28/25 13:30 Stool Clostridium difficile Toxin Assay - Final Complete 06/27/25 10:20 Voided Urine Urine Culture - Final Complete 06/27/25 02:28 Blood Blood Culture - Final NO GROWTH AFTER 5 DAYS OF INCUBATION. Complete Problem List/Assessment/Plan Problem List/Assessment/Plan Assessment and plan # Septic shock likely due to pyelonephritis # Suspected acute pyelonephritis #Mild left hydroureteronephrosis # acute complicated UTI # bilateral nephrostomy tube in place -status post nephrostomy tube replacement today -echo 2D done on 06/28/2025 non remarkable -continue Levophed -continue IV fluid as prescribed -continue IV antibiotic meropenem -urology consultation reviewed and appreciated -monitor CBC, CMP -urine culture contaminated sample. Blood culture negative. -patient was restarted on Levophed # failure to thrive -ordered dietary consult # hypokalemia. Replenished -monitor CMP # history of cervical carcinoma stage IV -follow up with outpatient oncologist # anemia likely due to anemia chronic disease --ordered iron profile, ferritin -monitor CBC # suspected colitis/proctitis -continue IV antibiotic and IV fluid as prescribed # MIKO likely due to VMN -serum creatinine trending down -avoid dehydration and nephrotoxic drugs -continue IV fluid as prescribed -monitor CMP Goals of care, Code status ; discussed with >15 minutes PUD prophylaxis: Pantoprazole DVT prophylaxis: Lovenox Plan discussed with Dr. Aziz , nursing staff, Total time spent on patient evaluation, chart review, assessment and plan, discussion discussion >35 minutes Plan discussed with: Patient, Other My Orders My Orders Orders - UVALDO GORDILLO Procedure Category Date Status Time Norepinephrine 8 PHA 07/02/25 In Process Mg/250ml Kit 19:15 Communication Order ORDERS 07/02/25 Transmitted 11:00 Vancomycin,Random LAB 07/04/25 Verified 04:00 Creatinine LAB 07/04/25 Verified 04:00 Pt Request For Service PT 07/03/25 Logged 11:37 Meropenem 1gm Ivpb PHA 07/03/25 In Process (Merrem 1gm/50ml) 22:00 Sodium Chloride 0.9% PHA 07/03/25 In Process 17:30 Dietary Evaluation Review Recommendations by RD: Dietary education by RD, Protein Supplementation Comments: 1) Initiiate Ensure Enlive tid 2) Encourage optimal PO intake 3) Refer to outpatinet RD for weight management 4) Follow up with oncology and urology 5) Continue to monitor I&O, labs, and skin integrity Expected Outcomes/Goals: 1) appetite and labs to improve 2) gradual wt gain 3) f/u in 3-5 days Date of Service: Jul 03, 2025 Billing Provider: NONA SHEARER MD Common Visit Codes: [id number] CARE 30-74 MIN UVALDO GORDILLO Jul 03, 2025 17:38 NONA SHEARER MD Jul 07, 2025 01:06
[2025-07-03] MEDS: SODIUM CHLORIDE 0.9% 1,000 ML IV ONE (18:08)
[2025-07-03] MEDS ORDERED: SODIUM CHLORIDE 0.9% 1,000 ML IV SCH (19:00)
[2025-07-03] MEDS ORDERED: MEROPENEM 1GM IVPB 50 ML IV SCH (22:00)
--- NOTE | 2025-07-04 07:09 | DVHDSRES ---
Discharge Summary Date of Admission Resident Creating Document: UVALDO GORDILLO RESIDENT Jun 27, 2025 at 04:47 Date of Discharge: Jul 03, 2025 Admitting Diagnosis Septic shock likely due to pyelonephritis Labs/Diagnostic Data: Laboratory Results Test 07/03/25 04:44 07/02/25 08:23 07/02/25 04:50 06/30/25 05:20 White Blood Count 8.2 10^3/uL (4.4-10.8) Red Blood Count 2.52 10^6/uL (4.0-5.20) Hemoglobin 8.0 g/dL (12.2-16.2) Hematocrit 24.4 % (36.0-46.0) Mean Corpuscular Volume 96.8 fL (80.0-100.0) Mean Corpuscular Hemoglobin 31.8 pg (28.0-32.0) Mean Corpuscular Hemoglobin Concent 32.9 g/dL (32.0-36.0) Red Cell Distribution Width 15.0 % (11.8-14.3) Platelet Count 348 10^3/uL (140-450) Mean Platelet Volume 7.2 fL (6.9-10.8) Neutrophils (%) (Auto) 87.9 % (37.0-80.0) Lymphocytes (%) (Auto) 8.4 % (10.0-50.0) Monocytes (%) (Auto) 3.2 % (0.0-12.0) Eosinophils (%) (Auto) 0.4 % (0.0-7.0) Basophils (%) (Auto) 0.1 % (0.0-2.0) Neutrophils # (Auto) 7.2 10 ^3/uL (1.6-8.6) Lymphocytes # (Auto) 0.7 10 ^3/uL (0.4-5.4) Monocytes # (Auto) 0.3 10 ^3/uL (0-1.3) Eosinophils # (Auto) 0 10 ^3/uL (0-0.8) Basophils # (Auto) 0 10 ^3/uL (0-0.2) Nucleated Red Blood Cells 0.1 % Sodium Level 143 mmol/L (136-145) Potassium Level 2.8 mmol/L (3.5-5.1) Chloride Level 105 mmol/L (98-107) Carbon Dioxide Level 32 mmol/L (20-31) Anion Gap 6 (5-15) Blood Urea Nitrogen 18 mg/dL (9-23) Creatinine 1.35 mg/dL (0.550-1.02) Glomerular Filtration Rate Calc 50 mL/min (>90) BUN/Creatinine Ratio 13.3 (10.0-20.0) Serum Glucose 80 mg/dL (74-106) Calcium Level 7.5 mg/dL (8.7-10.4) Magnesium Level 2.0 mg/dL (1.6-2.6) Total Bilirubin < 0.2 mg/dL (0.2-1.0) Aspartate Amino Transferase (AST) 24 U/L (13-40) Alanine Aminotransferase (ALT) 26 U/L (7-40) Alkaline Phosphatase 94 U/L (46-116) Total Protein 4.6 g/dL (5.7-8.2) Albumin 2.5 g/dL (3.2-4.8) Vancomycin Level Trough 12.7 ug/mL (5-10) Prothrombin Time 10.3 sec (9.3-11.8) Prothrombin Time INR 0.97 (0.9-1.15) Activated Partial Thromboplast Time 26.2 SEC (24.5-34.5) Differential Total Cells Counted 100.0 (100) Neutrophils % (Manual) 93 (37.0-80.0) Band Neutrophils % (Manual) 0 Lymphocytes % (Manual) 4 (10.0-50.0) Monocytes % (Manual) 3 (0-12) Eosinophils % (Manual) 0 (0-7) Basophils % (Manual) 0 (0.0-2.0) Metamyelocytes % (manual) 0 Myelocytes % (Manual) 0 Promyelocytes % (Manual) 0 Blast Cells % (Manual) 0 Reactive Lymphocytes 0 Platelet Estimate Increased Test 06/28/25 13:30 06/28/25 04:08 06/27/25 12:04 06/27/25 10:20 Stool for White Cells None seen Smudge Cells /100 WBC Iron Level 21 ug/dL (50-170) Total Iron Binding Capacity 193 ug/dL (250-425) Percent Iron Saturation 10.9 % (15-50) Ferritin 695.8 ng/mL (10-291) Random Vancomycin Level 14.5 ug/mL (5-10) Erythrocyte Sedimentation Rate 75 mm/hr (0-20) Urine Color Colorless (Yellow) Urine Clarity Turbid (Clear) Urine pH 8.0 (5.0-9.0) Urine Specific [place] 1.036 (1.001-1.035) Urine Protein Trace (Negative) Urine Ketones Negative (Negative) Urine Blood 2+ /uL (Negative) Urine Nitrite Negative (Negative) Urine Bilirubin Negative (Negative) Urine Urobilinogen Normal mg/dL (Negative) Urine Leukocyte Esterase 3+ /uL (Negative) Urine RBC 68 /hpf (0 - 4) Urine Microscopic WBC 84 /HPF (0-5) Urine Squamous Epithelial Cells Few /hpf (<5) Urine Triple Phosphate Crystals Few /hpf (None Seen) Urine Bacteria None seen /hpf (None Seen) Urine Mucus Few (None Seen) Urine Glucose Normal mg/dL (Normal) Urine Opiates Screen Neg (NEGATIVE) Urine Fentanyl Screen Neg (NEGATIVE) Urine Barbiturates Screen Neg (NEGATIVE) Urine Phencyclidine Screen Neg (NEGATIVE) Urine Amphetamines Screen Pos (NEGATIVE) Urine Benzodiazepines Screen Neg (NEGATIVE) Urine Cocaine Screen Neg (NEGATIVE) Urine Cannabinoids Screen Neg (NEGATIVE) Test 06/27/25 02:28 Hemoglobin A1c < 3.8 % A1C (<5.7) Lactic Acid Level 1.6 mmol/L (0.4-2.0) Troponin I High Sensitivity < 3 ng/L (</=34) C-Reactive Protein High Sensitivity 11.93 mg/dL (<1.0) Thyroid Stimulating Hormone (TSH) 1.53 uIU/mL (0.55-4.78) Other Laboratory Tests 07/03/25 04:44 Brief Hx & Hospital Course: Patient is 44 years old female with a past medical history of cervical carcinoma stage IV, status post bilateral nephrostomy done 1 year before likely due to bilateral hydronephrosis came with a complaint of bilateral flank pain going for for few days, 08/08. Associated with nausea and low-grade fever at home 99 F. patient denied any diarrhea, constipation, acute joint redness or swelling or sick contact. Initial lab workup revealed hemoglobin 9.0, hematocrit 27.8. serum creatinine 1.39. Urinalysis revealed leukocyte esterase 3+, RBC 68, WBC 84. CT abdomen and pelvis revealed1. Bilateral percutaneous nephrostomy tubes appear appropriately positioned. Unusual elongated hypodense appearance of the cervix as reported on the comparison exam. Suspected left upper urinary tract infection. Wall thickening of the cecum, ascending colon, and rectum. Stranding around the rectum may be inflammatory. Correlate for symptoms of colitis/proctitis. Hospital course-during hospitalization patient was treated with IV antibiotic and IV fluid. Patient was on Levophed and dopamine. Patient was seen by Cardiology. Echo revealed EF 65%. Patient was found to have sinus bradycardia- junctional rhythm, recommended for ppm. Patient refused. Blood culture negative, urine culture contaminated sample. Patient's MIKO improved Patient had nephrostomy tube changed. Patient received currently developed hypotension off vasopressor. Patient left AMA. Patient's condition during discharge was undetermined. Assessment # Septic shock likely due to pyelonephritis # Suspected acute pyelonephritis #Mild left hydroureteronephrosis # acute complicated UTI # bilateral nephrostomy tube in place, status post nephrostomy tube change # failure to thrive # hypokalemia. Replenished # history of cervical carcinoma stage IV # anemia likely due to anemia chronic disease # suspected colitis/proctitis # MIKO likely due to VMN Plan Patient left AMA Operations or Procedures [place] [id number] Ph: [phone] DIAGNOSTIC IMAGING Diagnostic Imaging Report : [id number] Signed PATIENT: PILY FITZGERALD ACCT: [id number] UNIT: [id number] : 1980 LOC: ER ROOM / BED: / AGE / SEX: 44 / F ADM STATUS: REG ER SERVICE 0202 ORDERING PHYSICIAN: GREG CASTILLO MD PROCEDURE(s): ABPLIV - CT AB PEL WITH IV CON ONLY REASON: abd pain stage 4 cerv cancer ORDER NUMBER(s): [id number], ACCESSION NUMBER(s): [id number] Exam: CT CT AB PEL WITH IV CON ONLY History: abd pain stage 4 cerv cancer Comparison Study: 02/17/2025 (report only available) Technique: Multidetector spiral CT of the abdomen was performed from lung bases to pubic symphysis. Imaging was performed without IV contrast. Axial, coronal and sagittal multiplanar reformats were obtained from the axial data set by the technologist. Radiation Dose : 1. Abdomen/Pelvis: CTDIvol 5.07 mGy, DLP 5.07 mGy*cm. Findings: Evaluation of solid organs is limited due to lack of intravenous contrast use. Lower Chest: No acute findings. Liver: Upper normal size. No focal lesion. Gallbladder and Biliary Tree: Unremarkable Pancreas: Unremarkable. Spleen: Unremarkable. Adrenal Glands: Unremarkable. Kidneys/Ureters: Bilateral percutaneous nephrostomy tubes appear appropriately positioned. Mild left hydroureteronephrosis with urothelial enhancement. Right perinephric stranding. Symmetric nephrograms. No urinary stone. Bladder: Decompressed, not well assessed. Pelvic Organs: Elongated hyperdense appearance of the cervix. No appreciable mass. Bilateral tubal occlusion clips. Bowel: Mild wall thickening of the cecum, ascending colon, and rectum. No other areas of evident inflammation. No obstruction. Small to moderate stool burden. Vasculature: Unremarkable. Lymphadenopathy: No obvious adenopathy. Peritoneum: No ascites, free air, or fluid collection. Soft tissue stranding surrounding the rectum. Abdominal Wall: Cachexia. Musculoskeletal: No acute findings. IMPRESSION: 1. Bilateral percutaneous nephrostomy tubes appear appropriately positioned. Suspected left upper urinary tract infection. 2. Unusual elongated hypodense appearance of the cervix as reported on the comparison exam. No discrete masses appreciated by CT, or specific findings of metastatic disease. 3. Wall thickening of the cecum, ascending colon, and rectum. Stranding around the rectum may be inflammatory. Correlate for symptoms of colitis/proctitis. Radiation optimization: All CT scans at this facility use at least one of these dose optimization techniques: automated exposure control mA and/or kV adjustment per patient size (includes targeted exams where dose is matched to clinical indication) or iterative reconstruction. ATED BY: LALI CANO MD DICTATED DATE/TIME: 06/27/25415 SIGNED BY: LALI CANO MD SIGNED DATE/TIME: 06/27/25415 CC: [place] [id number] Ph: [phone] DIAGNOSTIC IMAGING Diagnostic Imaging Report : [id number] Signed PATIENT: PILY FITZGERALD ACCT: [id number] UNIT: [id number] : 1980 LOC: OVERFLOW ROOM / BED: [address] [place] [address] / A AGE / SEX: 44 / F ADM STATUS: ADM IN SERVICE 1902 ORDERING PHYSICIAN: DUKE BARRAGAN PROCEDURE(s): CXR1 - CHEST XRAY 1 VIEW REASON: Central line assess post placement ORDER NUMBER(s): [id number], ACCESSION NUMBER(s): [id number] CHEST RADIOGRAPH REASON FOR EXAM: Central line assess post placement COMPARISON: None TECHNIQUE: One view of the chest is provided FINDINGS: The cardiomediastinal silhouette is within normal limits for technique. There is a right neck catheter with the tip projecting over the area of the cavoatrial junction. There is no focal airspace disease. There is no significant pleural effusion. No acute bony abnormality is identified. IMPRESSION: No radiographic evidence of acute cardiopulmonary process. Right neck catheter tip projects over the cavoatrial junction. ATED BY: DEN COLEMAN MD DICTATED DATE/TIME: 06/27/252008 SIGNED BY: DEN COLEMAN MD SIGNED DATE/TIME: 06/27/252008 CC: [place] [id number] Ph: [phone] DIAGNOSTIC IMAGING Diagnostic Imaging Report : [id number] Signed PATIENT: PILY FITZGERALD ACCT: [id number] UNIT: [id number] : 1980 LOC: ICU CENTR ROOM / BED: [facility] / A AGE / SEX: 44 / F ADM STATUS: ADM IN SERVICE 0731 ORDERING PHYSICIAN: JEAN-PAUL PIKE MD PROCEDURE(s): PERCDRACH - CHANGE PERC. DRAIN W CONTRAST REASON: ORDER NUMBER(s): [id number], ACCESSION NUMBER(s): [id number] CHANGE PERC. DRAIN W CONTRAST, HISTORY: Nephrostomy tube exchange , last exchange in February. PROCEDURE: Informed consent was obtained. The patient was placed on the fluoroscopic table in a prone position and IV sedation administered. The bilateral flank was prepped with chlorhexidine which was allowed to dry and draped in the usual sterile fashion. Time out was performed and the soft tissues infiltrated with 1% lidocaine local anesthetic. An antegrade nephrostogram was performed to confirm position of the previous nephrostomy tube. The tube was cut and a glidewire was inserted through the nephrostomy tube into the ureter. The prior nephrostomy tube was removed, and a new 8.5 Fr multipurpose drainage catheter was advanced into the renal pelvis over a wire. Completion antegrade nephrostogram demonstrates appropriate position of the new bilateral nephrostomy tube in the renal pelvis. The catheter was secured in place and connected to gravity drainage. A sterile dressing was applied. No immediate complication was identified. DAP 57.39 FLUOROSCOPY TIME: 3.4 minutes. CONTRAST USED: 20 mL . SEDATION: Dr. Дмитрий Pike was personally responsible for the administration of moderate sedation during the procedure performed, including the use of an independent trained observer who had no other duties during the procedure. The drugs utilized were IV fentanyl and versed (see nursing log for details). The total time of supervision by the attending physician was approximately 40 minutes. FINDINGS: Bilateral nephrostomy tube within pigtail coiled in the left and right renal pelvis. IMPRESSION: Successful exchange of a right and left sided nephrostomy tubes, with placement of a new 8.5 fr multipurpose drainage catheter in the right and left renal pelvis. PLAN: Routine catheter exchanges in 3 months. ATED BY: JEAN-PAUL PIKE MD DICTATED DATE/TIME: 07/02/25943 SIGNED BY: JEAN-PAUL PIKE MD SIGNED DATE/TIME: 07/02/25943 CC: Condition at Discharge: Undetermined Final Diagnosis/Problems List # Septic shock likely due to pyelonephritis # Suspected acute pyelonephritis #Mild left hydroureteronephrosis # acute complicated UTI # bilateral nephrostomy tube in place, status post nephrostomy tube change # failure to thrive # hypokalemia. Replenished # history of cervical carcinoma stage IV # anemia likely due to anemia chronic disease # suspected colitis/proctitis # MIKO likely due to VMN Discharge Disposition: AMA Discharge Instruct/Medications Follow Up/Referral: Patient left AMA Medications: Patient left AMA Discharge Statement: "Patient was advised to return to the ER or call 911 if any headaches, dizziness, shortness of breath, chest pain, abdominal pain, bleeding, fevers, or worsening of medical condition. Patient was counseled about treatment plan, medications, possible side effects, patientverbalized understanding. All questions were answered to the best of my ability. This discharge took greater then 30 minutes in planning, reviewing documentation, counseling the patient, and discussing with other team members." ASSESSMENT ASSESSMENT Assessment # Septic shock likely due to pyelonephritis# Suspected acute pyelonephritis#Mild left hydroureteronephrosis # acute complicated UTI# bilateral nephrostomy tube in place, status post nephrostomy tube change# failure to thrive# hypokalemia. Replenished# history of cervical carcinoma stage IV# anemia likely due to anemia chronic disease# suspected colitis/proctitis# MIKO likely due to VMN Date of Service: Jul 03, 2025 Billing Provider: NONA SHEARER MD Common Visit Codes: 76277-MGL/OBS DISCH DAY >30min UVALDO GORDILLO RESIDENT Jul 04, 2025 07:08 NONA SHEARER MD Jul 07, 2025 02:02
== END 2025-07-03 21:45 | disposition left against medical advice (07) | DRG 871 ==
LOC: ER 00:52 → OVERFLOW 04:47 → ICU CENTRL 07-01 04:50
PROVIDERS: ADMIT Student in an Organized Health Care Education/Training Program; ATTEND Radiology Diagnostic Radiology
PROC: 02HV33Z Insertion of Infusion Device into Superior Vena Cava, Percutaneous Approach (ICD-10-PCS; 2025-06-27)
PROC: B548ZZA Ultrasonography of Superior Vena Cava, Guidance (ICD-10-PCS; 2025-06-27)
PROC: 0T25X0Z Change Drainage Device in Kidney, External Approach (ICD-10-PCS; principal; 2025-07-02)
DX: A41.9 Sepsis, unspecified organism (principal); N17.0 Acute kidney failure with tubular necrosis; R65.21 Severe sepsis with septic shock; N13.6 Pyonephrosis; E87.1 Hypo-osmolality and hyponatremia; Z68.1 Body mass index [BMI] 19.9 or less, adult; R62.7 Adult failure to thrive; C53.9 Malignant neoplasm of cervix uteri, unspecified; D63.8 Anemia in other chronic diseases classified elsewhere; K52.9 Noninfective gastroenteritis and colitis, unspecified; I95.9 Hypotension, unspecified; G89.3 Neoplasm related pain (acute) (chronic); R00.1 Bradycardia, unspecified; N99.528 Other complication of incontinent external stoma of urinary tract; E87.6 Hypokalemia; K62.89 Other specified diseases of anus and rectum; Z88.5 Allergy status to narcotic agent; Z88.0 Allergy status to penicillin; Y83.8 Other surgical procedures as the cause of abnormal reaction of the patient, or of later complication, without mention of misadventure at the time of the procedure
CPT/HCPCS: 36415; 36556; 50435; 71045; 74177; 75984; 80053; 80202; 80307; 81001; 82565; 82728; 83036; 83540; 83550; 83605; 83735; 84443; 84484; 85007; 85025; 85027; 85048; 85610; 85652; 85730; 86141; 86850; 86900; 86901; 87040; 87045; 87081; 87086; 87177; 87427; 93005; 93306; 96361; 96365; 96375; 97163; 99152; G0378; J2003; J2185; J2250; J2405; J2470; J3480; J3490; Q9967